=== PATIENT | male | born 1935 | race Caucasian/White ===

== ENCOUNTER 2025-08-12 07:05 | Outpatient (REF) | payer MEDICARE, SELFPAY ==
--- OUTSIDE RECORDS SUMMARY | 2025-08-12 07:09 | XMS_ITS | Encounter Summary ---
Author Organization [facility] Address [address] [place] [address] Phone Care Team Providers Care Switch Foreman Name Role Phone Frederic Mullen MD Unavailable Rosario Rivera MD Primary Care Provider Encounter Details Date Type Department Care Team (Late st Contact Info) Description 05/16/2025 Procedure Pass [place] Admitting Dept - Virtual Department [address] [place] [address] Social History Tobacco Use Types Packs/Day Years Used Date Smoking Tobacco: Unknown Education Answer Date Recorded Are you interested in more education? Not on maki e 07/07/2023 Are you concerned about learning? Not on file 07/07/2023 No 07/07/2023 No 07/07/2023 Food Answer Date Recorded Within the past 6 months we worried whether our food would run out before we got money to buy more. Never True 05/14/2025 Within the past 6 months the food we bought just didn't last and we didn't have enough money to get more. Never True Residential Stability Answer Date Recor ded What is your housing situation today? I have angelicarachel rios 05/14/2025 How many times have you move d in the past 12 months? Zero (I did not move) 05/14/2025 Paying for Meds Answer Date Recorded Do you have trouble paying for medicines? No 05/14/2025 Paying Utility Bills Answer Date Record ed Do you have trouble paying your heating or elect ricity bill? No 05/14/2025 Transportation Answer Date Recorded Has the lack of transportati on kept you from medical appointments or from getting medications? No 05/14/2025 Digital Access Answer Date Recorded No 05/14/2025 Yes 05/14/2025 Do you have reliable internet access at home? Ye s 05/14/2025 Do you have a device (e.g., phone, tablet, computer) with a working camera? Yes 05/14/2025 Intimate Partner Violence Answer Date R ecorded Are you denied basic needs s uch as food, clothing, or medical care? No 05/13/2025 In the past 12 months have y ou been in a relationship with a person who hurts, threatens, or tries to control you? No 05/13/2025 Are you denied basic needs s uch as food, clothing, or medical care? No 05/13/2025 In the past 12 months have y ou been in a relationship with a person who hurts, threatens, or tries to control you? No 05/13/2025 Sex and Gender Information Value Date Recorded Sex Assigned at Male 03/20/2024 12:26 PM EDT Legal Sex Male 5:58 PM EDT Gender Identity Male 03/20/2024 12:26 PM EDT Sexual Orientation Straight 03/20/2024 12 :26 PM EDT documented as of this encounter Plan of Treatment Upcoming Encounters Date Type Department Care Team (Late st Contact Info) Description 08/14/2025 2:15 PM EDT Office Visit [facility] General Surgical Care [address] [place] [address] [place] [address] Josiane Smith MD [address] [facility], 2nd [place] [address] documented as of this encounter Visit Diagnoses Not on filedocumented in this encounter Additional Health Concerns Infection Onset Date Last Indicated Resolved Time CDiff-Risk 05/25/2025 05/25/2025 05/25/2025 10:3 8 AM EDT CDiff-Risk 05/27/2025 05/27/2025 05/27/2025 7:49 PM EDT CoV-Risk Comment:Per note documentation 06/29/2025 06/29/2025 3:35 PM EDT documented as of this encounter Care Teams Switch Foreman Relationship Specialty Start Date End Date Rosario Rivera MD [address] [place] [address] [email or web address] PCP - General Internal Medicine 03/20/24 Frederic Mullen MD [address] [address] [email or web address] Primary Oncologist Hematology and Oncology 08/01/23 documented as of this encounter Additional Source Comments The information contained in this document represents components of the legal health record. It is not the complete legal health record.[facility]
--- OUTSIDE RECORDS SUMMARY | 2025-08-12 07:09 | XMS_ITS | Encounter Summary ---
Author Organization [facility] Address [address] [place] [address] [place] [address] Phone Care Team Providers Care Mail Handler Sorter Name Role Phone Frederic Mullen MD Unavailable Rosario Rivera MD Primary Care Provider Encounter Details Date Type Department Care Team (Late st Contact Info) Description 12/16/2024 Procedure Pass [facility], [facility] Scan - [address] [address] Social History Tobacco Use Types Packs/Day Years Used Date Smoking Tobacco: Never Assessed Education Answer Date Recorded Are you interested in more education? Not on maki e 07/07/2023 Are you concerned about learning? Not on file 07/07/2023 No 07/07/2023 No 07/07/2023 Digital Access Answer Date Recorded No 07/07/2023 No 07/07/2023 Reliable internet access at home? Not on file 07/07/2023 Device with a working camera? Not on file Intimate Partner Violence Answer Date R ecorded Are you denied basic needs s uch as food, clothing, or medical care? No 12/16/2024 In the past 12 months have y ou been in a relationship with a person who hurts, threatens, or tries to control you? No 12/16/2024 Are you denied basic needs s uch as food, clothing, or medical care? No 12/16/2024 In the past 12 months have y ou been in a relationship with a person who hurts, threatens, or tries to control you? No 12/16/2024 Sex and Gender Information Value Date Recorded Sex Assigned at Male 03/20/2024 12:26 PM EDT Legal Sex Male 5:58 PM EDT Gender Identity Male 03/20/2024 12:26 PM EDT Sexual Orientation Straight 03/20/2024 12 :26 PM EDT documented as of this encounter Functional Status * Calculated C-SSRS Risk Score (Lifetime/Recent) Answer Date of Assessment Author No Risk Indicated 12/16/2024 8:08 PM Nayeli Laureano RN * [place] Suicide Severity Rating Scale (Screener/Recent Self-Report) Question Answer Date of Assessment Author 1. Wish to be (Past 1 Month) No 12/16/2024 8:08 PM Nayeli Pierre RN 2. Non-Specific Active Suicidal Thoughts (Past 1 Month) No 12/16/2024 8:08 PM Nayeli Pierre RN 6. Suicidal Behavior (Lifetime) No 12/16/2024 8:08 PM Nayeli Pierre RN documented as of this encounter Plan of Treatment Upcoming Encounters Date Type Department Care Team (Late st Contact Info) Description 08/14/2025 2:15 PM EDT Office Visit [facility] General Surgical Care [address] [place] [phone] Josiane Smith MD [address] [place] [address], 2nd [place] [address] [email or web address] documented as of this encounter Visit Diagnoses Not on filedocumented in this encounter Additional Health Concerns Infection Onset Date Last Indicated Resolved Time CDiff-Risk 05/25/2025 05/25/2025 05/25/2025 10:3 8 AM EDT CDiff-Risk 05/27/2025 05/27/2025 05/27/2025 7:49 PM EDT CoV-Risk Comment:Per note documentation 06/29/2025 06/29/2025 3:35 PM EDT documented as of this encounter Care Teams Mail Handler Sorter Relationship Specialty Start Date End Date Rosario Rivera MD [address] [place] [phone] [email or web address] PCP - General Internal Medicine 03/20/24 Frederic Mullen MD [address] [place] [address] [email or web address] Primary Oncologist Hematology and Oncology 08/01/23 documented as of this encounter Additional Source Comments The information contained in this document represents components of the legal health record. It is not the complete legal health record.[facility]
--- OUTSIDE RECORDS SUMMARY | 2025-08-12 07:09 | XMS_ITS | Encounter Summary ---
Author Organization [facility] Address [address] [place] [address] [place] [phone] Phone Care Team Providers Care Line Supply Name Role Phone Rosario Rivera A Primary Care Provider Frederic Mullen MD Unavailable [phone] Rosario Rivera A Primary Care Provider Encounter Details Date Type Department Care Team (Latest Contact Info) Description 08/11/2023 Transcribe Orders [facility] Specimen Processing [address] [place] [address] Rosario Rivera MD [address] [place] [id number] [email or web address] Dysuria (Primary Dx) Social History Tobacco Use Types Packs/Day Years [...] with a working camera? Not on file Sex and Gender Information Value Date Recorded Sex Assigned at Male 03/20/2024 12:26 PM EDT Legal Sex Male 5:58 PM EDT Gender Identity Male 03/20/2024 12:26 PM EDT Sexual Orientation Straight 03/20/2024 12 :26 PM EDT documented as of this encounter Plan of Treatment Upcoming Encounters Date Type Department Care Team (Late st Contact Info) Description 08/14/2025 2:15 PM EDT Office Visit [facility] General Surgical Care [address] [place] [address] Josiane Smith MD [address] [facility] [place] [address] [email or web address] documented as of this encounter Results * (ABNORMAL) Urinalysis w/reflex Urine Culture (08/10/2023 11:50 AM EDT) COLOR Yellow Yellow [facility] CLARITY TURBID [facility] GLUCOSE 1+(A) Negative [facility] BILI Negative Negative [facility] KETONES Negative Negative [facility] SPECIFIC GRAVITY 1.015 1.005 - 1.030 [facility] BLOOD 1+(A) Negative [facility] PH 5.5 5.0 - 8.0 [facility] Protein-UA 1+(A) Negative [facility] NITRITE Positive(A) Negative [facility] Leukocyte esterase, ur 3+(A) Negative [facility] Urine (Urine) 08/10/2023 11: 50 AM EDT 08/11/2023 11:56 AM EDT us May A Santosh Vaughan MD URINE ORDERABLES Final Result [facility] [address] [place] [address] documented in this encounter Visit Diagnoses Diagnosis Dysuria- Primary documented in this encounter Additional Health Concerns Infection Onset Date Last Indicated Resolved Time CDiff-Risk 05/25/2025 05/25/2025 05/25/2025 10:3 8 AM EDT CDiff-Risk 05/27/2025 05/27/2025 05/27/2025 7:49 PM EDT CoV-Risk Comment:Per note documentation 06/29/2025 06/29/2025 3:35 PM EDT documented as of this encounter Care Teams Line Supply Relationship Specialty Start Date End Date Rosario Rivera MD [address] [place] [phone] [email or web address] PCP - General Internal Medicine 07/07/23 03/19/24 Rosario Rivera MD [address] [place] [address] [email or web address] PCP - General Internal Medicine 03/20/24 Frederic Mullen MD [address] [place] [address] [email or web address] Primary Oncologist Hematology and Oncology 08/01/23 documented as of this encounter Additional Source Comments The information contained in this document represents components of the legal health record. It is not the complete legal health record.[facility]
--- OUTSIDE RECORDS SUMMARY | 2025-08-12 07:09 | XMS_ITS | Encounter Summary ---
Author Organization [facility] Address [address] [place] [address] Phone Care Team Providers Care Earth Science Teacher Name Role Phone Frederic Mullen MD Unavailable Rosario Rivera MD Primary Care Provider Encounter Details Date Type Department Care Team (Late st Contact Info) Description 05/14/2025 Procedure Pass [facility] [address] [place] [address] Social History Tobacco Use Types Packs/Day Years [...] is your housing situation today? I have angelica sing 05/14/2025 How many times have you move [...] Description 08/14/2025 2:15 PM EDT Office Visit [facility] General Surgical Care [address] [place] [address] [place] [address] Josiane Smith MD [address] [facility], 2nd [place] [address] documented as of this encounter Visit Diagnoses Not on filedocumented in this encounter Additional Health Concerns Infection Onset Date Last Indicated Resolved Time CDiff-Risk 05/25/2025 05/25/2025 05/25/2025 10:3 8 AM EDT CDiff-Risk 05/27/2025 05/27/2025 05/27/2025 7:49 PM EDT CoV-Risk Comment:Per note documentation 06/29/2025 06/29/2025 3:35 PM EDT documented as of this encounter Care Teams Earth Science Teacher Relationship Specialty Start Date End Date Rosario Rivera MD [address] [place] [phone] [email or web address] PCP - General Internal Medicine 03/20/24 Frederic Mullen MD [address] [address] [email or web address] Primary Oncologist Hematology and Oncology 08/01/23 documented as of this encounter Additional Source Comments The information contained in this document represents components of the legal health record. It is not the complete legal health record.[facility]
--- OUTSIDE RECORDS SUMMARY | 2025-08-12 07:09 | XMS_ITS | Clinical Summary ---
Author Organization [facility] Address [address] [place] [address] [place] [id number] Phone Care Team Providers Care Audience Coordinator Name Role Phone Frederic Mullen MD Unavailable [phone] Santosh Vaughan May A Primary Care Provider Allergies Active Allergy Reactions Criticality Noted Date Comments Glyburide-Metformin 06/29/2025 Metformin 06/29/2025 Rifampin GI Upset High 06/30/2025 Simvastatin 06/29/2025 Medications aspirin 81 MG EC tablet Take 81 mg by mouth daily. Active pantoprazole (PROTONIX) 40 MG tablet Take 40 mg by mouth daily. Active finasteride (PROSCAR) 5 mg tablet Take 5 mg by mouth daily. Active gabapentin (NEURONTIN) 300 MG capsule Take 300 mg by mouth every morning. Active gabapentin (NEURONTIN) 300 MG capsule Take 900 mg by mouth nightly at bedtime. Active glimepiride (AMARYL) 1 MG tablet Take 0.5 mg by mouth daily before breakfast. If bs greater than 100 Active SITagliptin phosphate (JANUVIA) 100 MG tablet Take 100 mg by mouth daily. Active rosuvastatin (CRESTOR) 20 MG tablet Take 20 mg by mouth daily. Active sucralfate (CARAFATE) 1 gram tablet Take 1 g by mouth as needed. Active silodosin (RAPAFLO) 8 mg Cap Take 8 mg by mouth daily. pm Active traZODone (DESYREL) 50 MG tablet Take 50 mg by mouth nightly at bedtime. Active levothyroxine (SYNTHROID, LEVOTHROID) 50 MCG tablet Take 50 mcg by mouth every morning. 02/21/20 Active ENTRESTO 49-51 mg per tablet Take 0.5 tablets by mouth 2 (two) times a day. 05/22/20 Active Additional Information Patient taking differently:0.5 tablet Oral 2 times daily,24mg-26mg, Reported on 06/19/2025 furosemide (LASIX) 20 MG tablet Take 1 tablet (20 mg total) by mouth daily. 05/22/20 Active spironolactone (ALDACTONE) 25 MG tablet Take 0.5 tablets (12.5 mg total) by mouth daily. 05/22/20 Active psyllium (METAMUCIL) 3.4 gram packet Take 1 packet by mouth 2 (two) times a day. 05/22/20 Active acetaminophen (TYLENOL) 325 mg tablet Take 2 tablets (650 mg total) by mouth every 6 (six) hours as needed for pain (specific location in comments). 05/22/20 Active ondansetron (ZOFRAN-ODT) 4 MG disintegrating tablet Take 1 tablet (4 mg total) by mouth every 8 (eight) hours as needed for nausea. 5 tablet 05/27/20 25 Active phenazopyridine (PYRIDIUM) 100 MG tablet 04/16/20 Active albuterol 2.5 mg /3 mL (0.083 %) nebulizer solution Take 3 mL (2.5 mg total) by nebulization every 4 (four) hours as needed for shortness of breath/dyspnea. 3 mL 07/12/20 25 Active benzocaine (ORAJEL) 10 % mucosal gel Use as directed in the mouth or throat 4 (four) times a day as needed for pain (specific location in comments). 5.3 g 07/12/20 25 Active bisacodyl (DULCOLAX) [address] 1 suppository (10 mg total) rectally daily. 1 suppository 07/12/20 25 Active calcium carbonate 500 mg (200 mg elemental) chewable tabletIndications :dyspepsia,heartb urn Take 1 tablet (500 mg total) by mouth every 6 (six) hours as needed for heartburn. Indications: heartburn, indigestion 90 tablet 07/12/20 25 Active collagenase (SANTYL) ointment Apply topically daily. 30 g 07/12/20 25 Active empagliflozin (JARDIANCE) 10 mg tablet Take 1 tablet (10 mg total) by mouth daily. 30 tablet 07/12/20 25 Active ferrous sulfate 325 mg (65 mg tuscarora iron) tablet Take 1 tablet (325 mg total) by mouth 2 (two) times a day with meals. 60 tablet 07/12/20 25 Active fluticasone propionate (FLONASE) 50 mcg/actuation nasal spray 2 sprays by Nasal route 2 (two) times a day as needed for allergies. 11.1 mL 07/12/20 25 Active guaiFENesin (MUCINEX) 600 mg ER biphasic tablet Take 2 tablets (1,200 mg total) by mouth 2 (two) times a day. 120 tablet 11 07/12/20 25 026 Active insulin lispro (ADMELOG, HUMALOG) 100 unit/mL injection vial Inject 0-6 Units under the skin 4 (four) times a day with meals and nightly. 10 mL 07/12/20 25 Active melatonin 5 mg Tab Take 1 tablet (5 mg total) by mouth nightly at bedtime. 30 tablet 07/12/20 25 Active metoprolol tartrate (LOPRESSOR) 25 MG tablet Take 0.5 tablets (12.5 mg total) by mouth 2 (two) times a day. 30 tablet 07/12/20 25 Active polyethylene glycol (MIRALAX) 17 gram packet Take 17 g by mouth daily. 10 packet 07/12/20 25 Active senna (SENOKOT) 8.6 mg tablet Take 1 tablet by mouth nightly at bedtime. 30 tablet 07/12/20 25 Active gabapentin (NEURONTIN) 100 MG capsule Take 1 capsule (100 mg total) by mouth 3 (three) times a day. 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 Insulin sliding scale, pocc Assessment & Plan (05/20/2025 9:31 AM EDT): Hold oral antihyperglycemic agents. Insulin sliding scale, pocc Assessment & Plan (05/19/2025 9:26 AM EDT): Hold oral antihyperglycemic agents. Insulin sliding scale, pocc Assessment & Plan (05/18/2025 12:31 PM EDT): Hold oral antihyperglycemic agents. Insulin sliding scale, pocc Assessment & Plan (05/17/2025 8:59 AM EDT): Hold oral antihyperglycemic agents. Insulin sliding scale, pocc Assessment & Plan (05/16/2025 10:55 AM EDT): Hold oral antihyperglycemic agents. Insulin sliding scale, pocc Assessment & Plan (05/15/2025 11:16 AM EDT): Hold oral antihyperglycemic agents. Insulin sliding scale, pocc Assessment & Plan (05/14/2025 9:49 AM EDT): Hold oral antihyperglycemic agents. Insulin sliding scale, pocc Assessment & Plan (05/14/2025 12:09 AM EDT): Hold oral antihyperglycemic agents. Insulin sliding scale Coronary artery disease 05/13/2025 Assessment & Plan (05/21/2025 8:58 AM EDT): Continue aspirin 81 mg Assessment & Plan (05/20/2025 9:31 AM EDT): Continue aspirin 81 mg Assessment & Plan (05/19/2025 9:26 AM EDT): Continue aspirin 81 mg Assessment & Plan (05/18/2025 12:31 PM EDT): Continue aspirin 81 mg Assessment & Plan (05/17/2025 8:59 AM EDT): Continue aspirin 81 mg Assessment & Plan (05/16/2025 10:55 AM EDT): Continue aspirin 81 mg Assessment & Plan (05/15/2025 11:16 AM EDT): Continue aspirin 81 mg Assessment & Plan (05/14/2025 9:49 AM EDT): Continue aspirin 81 mg Assessment & Plan (05/14/2025 12:09 AM EDT): Continue aspirin 81 mg Chronic ischemic heart disease, unspecified 06/2025 Pacemaker 05/13/2025 Foot osteomyelitis, left 05/13/2025 Assessment & Plan (05/21/2025 8:58 AM EDT): Secondary to left great toe wound, also with noted tenosynovitis on imaging On admission ESR CRP significantly elevated, MRI evidence of above S/p amputation of left great toe 05/16/2025, mathew pus noted, dr hussein otherwise feels she got clean margins , samples sent to pathology which is pending Continue IV Zosyn with superimposed cellulitis, purulent pockets noted during surgery, did not personally visualize but surgeon reported some residual erythema at base of the toe today 05/18 Wound culture growing Staph aureus Surgery continues to follow, wound VAC applied by wound RN on 05/20, to be changed on 05/22 Infectious disease consulted for antibiotic management, recommending to continue Zosyn with plan to switch to p.o. antibiotic for a 6-week course for Staph aureus osteomyelitis If antibiotics cannot eradicate all residual infection and/or the wound wound does not heal a higher amputation might be necessary Assessment & Plan (05/20/2025 9:31 AM EDT): Secondary to left great toe wound, also with noted tenosynovitis on imaging On admission ESR CRP significantly elevated, MRI evidence of above S/p amputation of left great toe 05/16/2025, mathew pus noted, dr hussein otherwise feels she got clean margins , samples sent to pathology which is pending Continue IV Zosyn with superimposed cellulitis, purulent pockets noted during surgery... did not personally visualize but surgeon reported some residual erythema at base of the toe today 05/18 Wound culture growing MSSA Surgery to reevaluate patient today Wound care consulted He will likely not need prolonged course of antibiotics for osteomyelitis with source control but will need to finish a shorter course of abx for the superimposed cellulitis Assessment & Plan (05/19/2025 9:26 AM EDT): Secondary to left great toe wound, also with noted tenosynovitis on imaging On admission ESR CRP significantly elevated, MRI evidence of above S/p amputation of left great toe 05/16/2025, mathew pus noted, dr hussein otherwise feels she got clean margins , samples sent to path. She will reassess the pt on Monday. Continue IV Zosyn with superimposed cellulitis, purulent pockets noted during surgery... did not personally visualize but surgeon reported some residual erythema at base of the toe today 05/18 wound care, he will likely not need prolonged course of antibiotics for osteomyelitis with source control but will need to finish a shorter course of abx for the superimposed cellulitis as well, for now IV Assessment & Plan (05/18/2025 12:31 PM EDT): - Secondary to left great toe wound, also with noted tenosynovitis on imaging -ESR CRP significantly elevated, MRI evidence of above -s/p amputation of left great toe 05/16/2025, mathew pus noted, dr hussein otherwise feels she got clean margins , samples sent to path. She will reassess the pt on Monday. -Continue IV Zosyn with superimposed cellulitis, purulent pockets noted during surgery... did not personally visualize but surgeon reported some residual erythema at base of the toe today 05/18 -wound care, he will likely not need prolonged course of antibiotics for osteomyelitis with source control but will need to finish a shorter course of abx for the superimposed cellulitis as well, for now IV Assessment & Plan (05/17/2025 8:59 AM EDT): - Secondary to left great toe wound, also with noted tenosynovitis on imaging -ESR CRP significantly elevated, MRI evidence of above -Continue Zosyn with superimposed cellulitis, purulent pockets noted during surgery -s/p amputation of left great toe 05/16/2025, mathew pus noted, dr hussein otherwise feels she got clean margins on bone -wound care, he will likely not need prolonged course of antibiotics for osteomyelitis with source control but will need to finish a shorter course of abx for the superimposed cellulitis as well, for now IV -added another 300 mg afternoon dose of gabapentin Assessment & Plan (05/16/2025 10:55 AM EDT): - Secondary to left great toe wound, also with noted tenosynovitis on imaging -ESR CRP significantly elevated, MRI evidence of above -Continue Zosyn, holding vancomycin with a negative MRSA screen -Wound care -Surgery consulted and planning for amputation today so he will not need prolonged course of antibiotics for osteomyelitis with source control but will need to finish a shorter course of abx for the superimposed cellulitis as well - Chest x-ray and EKG reviewed patient encouraged to use incentive spirometry he is of moderate to high risk for any procedure where he undergoes sedation however plan for local block instead of full anesthesia today Assessment & Plan (05/15/2025 3:05 PM EDT): - Suspected left toe infection, underlying controlled dm2 -ESR CRP significantly elevated, MRI shows concern for early osteomyelitis and tenosynovitis -Continue Zosyn, holding vancomycin with a negative MRSA screen although he is growing Staph aureus -Wound care -Surgery consulted and planning for amputation tomorrow at which point we may be able to discontinue antibiotics if we have good margins however will need to finish a shorter course of abx for the superimposed cellulitis as well -Will check CXR and EKG preop but patient is higher risk for procedure with CAD history, likely will not need full anesthesia Assessment & Plan (05/14/2025 9:49 AM EDT): - Suspected left toe infection, underlying controlled dm2 -ESR CRP significantly elevated, x-ray of the left toe showed no osseous concern, MRI pending -Continue Zosyn and vancomycin at this time, hold vanco if MRSA screen neg -Wound care -surgical consult pending. Assessment & Plan (05/14/2025 12:09 AM EDT): - Suspected left toe infection, has underlying history of type 2 diabetes, well-controlled at this time -Area of surrounding erythema, small lesion over the medial aspect of the left great toe that is draining fluid\. -ESR CRP significantly elevated, x-ray of the left toe was without evidence of acute osteomyelitis Plan: Suspected diabetic toe infection, surgery consulted excruciating Continue Zosyn and vancomycin at this time Check MRSA PCR Wound care consult are speciated. Check MRI of the left toe Surgery consulted recs appreciated. Unspecified atrial fibrillation 03/20/2024 Iron deficiency anemia, unspecified 08/10/2023 Resolved Problems Problem Noted Date Diagnosed Date Resolved Date Hyponatremia 05/17/2025 07/04/2025 Assessment & Plan (05/21/2025 8:58 AM EDT): Mild iso of dehydration, he has soft Bps at baseline, hold parameters for BP meds which he does still tolerate for the most part, got IVF for mild hypoNA that resolved and now is again encouraged to drink fluids. May need to reconsider his cardiac regimen prior to dc, his spironolactone, Lasix and entresto dose was halved during hospitalization Assessment & Plan (05/20/2025 9:31 AM EDT): Mild iso of dehydration, he has soft Bps at baseline, hold parameters for BP meds which he does still tolerate for the most part, got IVF for mild hypoNA that resolved and now is again encouraged to drink fluids. May need to reconsider his cardiac regimen prior to dc, his spironolactone and entresto dose was halved during hospitalization Assessment & Plan (05/19/2025 9:26 AM EDT): Mild iso of dehydration, he has soft Bps at baseline, hold parameters for BP meds which he does still tolerate for the most part, got IVF for mild hypoNA that resolved and now is again encouraged to drink fluids. May need to reconsider his cardiac regimen prior to dc, his spironolactone and entresto dose was halved during hospitalization Assessment & Plan (05/18/2025 12:31 PM EDT): Mild iso of dehydration, he has soft Bps at baseline, hold parameters for BP meds which he does still tolerate for the most part, got IVF for mild hypoNA that resolved and now is again encouraged to drink fluids. May need to reconsider his cardiac regimen prior to dc. I did cut his spironolactone and entresto dosing in half for now. Assessment & Plan (05/17/2025 8:59 AM EDT): Mild iso of dehydration, he has soft Bps at baseline, hold parameters for BP meds which he does still tolerate for the most part, holding lasix today with gentle IVF, encourage oral hydration as well. Hyperkalemia 05/14/2025 05/14/2025 Assessment & Plan (05/14/2025 9:49 AM EDT): Mild hyperkalemia, potassium 5.3, now 4.7, monitor Resolved with fluids, lokelma Assessment & Plan (05/14/2025 12:09 AM EDT): Mild hyperkalemia, potassium 5.3 Unclear etiology at this time, suspect possibility dehydration Plan: Lokelma administered in the ED Recheck BMP in the a.m. Continue IVF hydration. Hyponatremia 05/13/2025 05/15/2025 Assessment & Plan (05/15/2025 11:16 AM EDT): - Mild hyponatremia improved with fluids continue to encourage oral hydration Assessment & Plan (05/14/2025 9:49 AM EDT): - Mild hyponatremia na 125 improved to 130, ct hydration 1 more liter, encourage oral Assessment & Plan (05/14/2025 12:09 AM EDT): - Mild hyponatremia sodium 125, chloride 93 - Appears to be hypovolemic hyponatremia giving urine sodium over 40 mill equivalents -IVF hydration administered in the ED Plan: Recheck BMP in a.m. Close conical monitoring. Can consider nephrology consultation without improvement. Encounters Date Type Department Care Team Description 07/09/2025 11:55 AM EDT Ancillary Procedure [address] [address] Donovan Duncan, STEAM SHOVEL OPERATING ENGINEER 07/07/2025 12:50 PM EDT Ancillary Procedure [address] [address] Gume Anderson MD 06/30/2025 Orders Only [facility] Specimen Processing [address] [place] [address] Rosario Rivera MD 06/30/2025 Procedure Pass [facility] Echo Lab [address] [place] [address] 06/29/2025 2:25 PM EDT Ancillary Procedure [address] [address] Luis Miguel Urias MD 06/29/2025 9:40 AM EDT Ancillary Procedure [address] [address] Abdiel Tucker PA-C 06/29/2025 9:37 AM EDT - 07/12/2025 10:05 AM EDT Hospital Encounter [facility] [address] [place] [id number] Reyes Garcia MD Zaman, Tonbira S, MD Lipkin-Andrea, MD Mustapha Morris, Lukas Langston MD, Gume Ko MD Discharge Disposition: Rehab Facility 06/27/2025 9:04 AM EDT - 06/27/2025 11:59 PM EDT Hospital Encounter [facility] [address] [place] [address] Elizabeth Hines MD Discharge Disposition: Home or Self Care 06/27/2025 Transcribe Orders [facility] Specimen [facility] [address] [place] [address] Elizabeth Hines MD Hypothyroidism, unspecified type (Primary Dx) 06/25/2025 Telephone [facility] Surgical [address] [place] [address] Deedee Willard RN 06/19/2025 1:30 PM EDT Office Visit [address] [place] [address] Josiane Hussein MD Post-operative state (Primary Dx) 06/17/2025 6:14 AM EDT - 06/17/2025 11:59 PM EDT Hospital Encounter [facility] [address] [place] [address] Rosario Rivera MD Discharge Disposition: Home or Self Care 06/17/2025 Transcribe Orders [facility] Specimen Processing [address] [place] [address] Rosario Rivera MD Other specified diabetes mellitus with other specified complication, unspecified whether long lines operator insulin use (Primary Dx) 06/16/2025 Telephone [facility] Surgical [address] [place] [address] Josiane Hussein MD Post-op Problem 06/13/2025 1:00 PM EDT Office Visit [address] [place] [address] Charlie Cantor CNP Post-operative state (Primary Dx); S/P amputation of lesser toe, left; Pressure ulcers of skin of multiple topographic sites 06/13/2025 9:46 AM EDT - 06/13/2025 11:59 PM EDT Hospital Encounter [facility] Laboratory [address] [place] [address] Elizabeth Hines MD Discharge Disposition: Home or Self Care 06/13/2025 Transcribe Orders [facility] Specimen Processing [address] [place] [address] Elizabeth Hines MD Other specified diabetes mellitus with other specified complication, unspecified whether long lines operator insulin use (Primary Dx); Heart failure, unspecified HF chronicity, unspecified heart failure type; Osteomyelitis, unspecified site, unspecified type 06/09/2025 11:36 AM EDT - 06/09/2025 11:59 PM EDT Hospital Encounter [facility] Laboratory [address] [place] [address] Elizabeth Hines MD Discharge Disposition: Home or Self Care 06/04/2025 11:30 AM EDT Office Visit [facility] General Surgical Care [address] [place] [address] Charlie Cantor CNP Post-operative state (Primary Dx); S/P amputation of lesser toe, left 06/03/2025 8:00 AM EDT Telemedicine - audio only [facility] Infectious Diseases [address] [place] [address] Lalit Del Real MD Other osteomyelitis of left foot (Primary Dx) 05/29/2025 11:52 AM EDT - 05/29/2025 11:59 PM EDT Hospital Encounter [facility] Laboratory [address] [place] [address] Deedee Collins NP Discharge Disposition: Home or Self Care 05/29/2025 11:00 AM EDT Telemedicine - audio only [facility] Infectious Diseases [address] [place] [address] Lalit Del Real MD Other osteomyelitis of left foot (Primary Dx); Nausea and vomiting, unspecified vomiting type 05/29/2025 Transcribe Orders [facility] Specimen Processing [address] [place] [address] Deedee Collins NP Leukocytosis, unspecified type (Primary Dx) 05/27/2025 11:48 AM EDT - 05/27/2025 9:58 PM EDT Emergency [facility] Emergency [address] [place] [address] Devon Andersen MD Discharge Disposition: Home or Self Care 05/27/2025 11:30 AM EDT Telemedicine - audio only [facility] Infectious Diseases [address] [place] [address] [place] [address] Lalit Del Real MD Nausea and vomiting, unspecified vomiting type (Primary Dx); Other osteomyelitis of left foot 05/27/2025 10:55 AM EDT - 05/27/2025 11:47 AM EDT Hospital Encounter [facility] Laboratory [address] [place] [address] Deedee Collins NP Discharge Disposition: Home or Self Care 05/27/2025 Procedure Pass [facility], [facility] [address] [place] [address] 05/27/2025 Telephone [facility] Infectious Diseases [address] [place] [address] [place] [address] Lalit Del Real MD Questions 05/27/2025 Transcribe Orders [facility] Specimen Processing [address] [place] [address] Deedee Collins NP Vomiting, unspecified vomiting type, unspecified whether nausea present (Primary Dx) 05/26/2025 11:11 AM EDT - 05/26/2025 11:59 PM EDT Hospital Encounter [facility] Laboratory [address] [place] [address] Elizabeth Hines MD Discharge Disposition: Home or Self Care 05/26/2025 Telephone [facility] Infectious Diseases [address] [place] [address] [place] [address] Lalit Del Real MD Medication Question 05/26/2025 Transcribe Orders [facility] Specimen Processing [address] [place] [address] Elizabeth Hines MD Amputated toe, unspecified laterality (Primary Dx) 05/25/2025 7:22 AM EDT - 05/25/2025 11:59 PM EDT Hospital Encounter [facility] [address] [place] [address] Deedee Collins NP Discharge Disposition: Home or Self Care 05/25/2025 Transcribe Orders [facility] Specimen Processing [address] [place] [address] Deedee Collins NP C. difficile diarrhea (Primary Dx) 05/23/2025 Telephone [facility] General Surgical Care [address] [place] [address] Laura Sands MD Post-op 05/17/2025 Orders Only [facility] [address] [place] [phone] Homehealth, Alaina Tran MD 05/16/2025 12:20 PM EDT Anesthesia Event OR Admitting Dept - Virtual Department [address] [place] [phone] Cristiane Viera MD Johnson, Brian D, MD 05/16/2025 11:37 AM EDT - 05/16/2025 1:04 PM EDT Surgery OR Admitting Dept - Virtual Department [address] [place] [address] Josiane Hussein MD AMPUTATION TOE 05/16/2025 Procedure Pass OR Admitting Dept - Virtual Department [address] [place] [id number] 05/14/2025 Procedure Pass [facility], [facility] - [address] [address] 05/13/2025 5:42 PM EDT - 05/22/2025 3:10 PM EDT Hospital Encounter [facility] [place] [address] [place] [address] Uli Garcia MD Savage, Justin G, DO Grachev, Maksim, DO Altman, Evan K, DO, MPH Neha Madison MD Discharge Disposition: Prison Facility 05/12/2025 8:08 PM EDT - 05/12/2025 11:59 PM EDT Hospital Encounter [facility] Laboratory [address] [place] [address] Rosario Rivera MD Discharge Disposition: Home or Self Care 05/12/2025 Transcribe Orders [facility] Specimen Processing [address] [place] [address] Rosario Rivera MD Diagnosis unknown (Primary Dx) from Last 3 Months Immunizations No known immunizations Social History Tobacco Use Types Packs/Day Years Used Date Smoking Tobacco: Unknown Tobacco Cessation:Counseling Given: Not Answered Alcohol Use Standard Drinks/Week Comments Not Currently 0 (1 standard drink = 0.6 oz pur e alcohol) Education Answer Date Recorded Are you interested in more education? Not on maki e 07/07/2023 Are you concerned about learning? Not on file 07/07/2023 No 07/07/2023 No 07/07/2023 Food Answer Date Recorded Within the past 6 months we worried whether our food would run out before we got money to buy more. Unable to assess 025 Within the past 6 months the food we bought just didn't last and we didn't have enough money to get more. Unable to assess 06/29/2025 Residential Stability Answer Date Recor ded What is your housing situation today? Unable to assess 06/29/2025 How many times have you moved in the past 12 mon ths? Unable to assess 06/29/2025 Paying for Meds Answer Date Recorded Do you have trouble paying for medicines? Unable to assess 06/29/2025 Paying Utility Bills Answer Date Record ed Do you have trouble paying y our heating or electricity bill? Unable to assess 06/29/2025 Transportation Answer Date Recorded Has the lack of transportati on kept you from medical appointments or from getting medications? Unable to assess 06/29/2025 Digital Access Answer Date Recorded No 06/29/2025 No 06/29/2025 Do you have reliable internet access at home? Un able to assess 06/29/2025 Do you have a device (e.g., phone, tablet, computer) with a working camera? Unable to assess 06/29/2025 Intimate Partner Violence Answer Date R ecorded Are you denied basic needs s uch as food, clothing, or medical care? No 06/29/2025 In the past 12 months have y ou been in a relationship with a person who hurts, threatens, or tries to control you? No 06/29/2025 Are you denied basic needs s uch as food, clothing, or medical care? No 06/29/2025 In the past 12 months have y ou been in a relationship with a person who hurts, threatens, or tries to control you? No 06/29/2025 Sex and Gender Information Value Date Recorded Sex Assigned at Male 03/20/2024 12:26 PM EDT Legal Sex Male 5:58 PM EDT Gender Identity Male 03/20/2024 12:26 PM EDT Sexual Orientation Straight 03/20/2024 12 :26 PM EDT Last Filed Vital Signs Vital Sign Reading Time Taken Comments Blood Pressure 117/57 07/12/2025 7:35 AM EDT Pulse 70 07/12/2025 7:35 AM EDT Temperature 35.9 C (96.7 F) 07/12/2025 7:35 AM EDT Respiratory Rate 18 07/12/2025 7:35 AM EDT Oxygen Saturation 97% 07/12/2025 7:35 AM EDT Inhaled Oxygen Concentration 1% 07/04/2025 6 :36 PM EDT Weight 104.1 kg (229 lb 8 oz) 07/12/2025 6:00 AM EDT Height 195.6 cm (6' 5.01 ) 07/11/2025 4:00 AM ED T Body Mass Index 27.21 07/11/2025 4:00 AM EDT Plan of Treatment Upcoming Encounters Date Type Department Care Team (Late st Contact Info) Description 08/14/2025 2:15 PM EDT Office Visit [facility] [address] [place] [address] Josiane Hussein MD [address] [facility], [address]nd [place] [address] [email or web address] Health Maintenance Due Date Last Done Comments Adult Td,Tdap Booster 1936 DEPRESSION SCREENING 1948 HEPATITIS A VACCINES (1 of 2 - Risk 2-dose series) 1955 PNEUMOCOCCAL VACCINES (50+ years) (1 of 2 - PCV) 1955 ZOSTER VACCINES (1 of 2) 1986 RSV VACCINE (1 - 1-dose 75+ series) 2011 DIABETIC EYE EXAM 10/24/2024 INFLUENZA VACCINE (#1) 2025 COVID-19 VACCINE ( - season) 2025 HEMOGLOBIN A1C 10/10/2025 04/10/2025, 10/06, 04/04/2024, Additional history exists TSH LEVEL 07/03/2026 07/03/2025, 05/06, 04/10/2025, Additional history exists POTASSIUM LEVEL 07/11/2026 07/11/2025, 02/2025, 07/08/2025, Additional history exists HIB VACCINES Aged Out No longer eligi ble based on patient's age to complete this topic MENINGOCOCCAL VACCINES (ACWY) Aged Out No longer eligible based on patient's age to complete this topic MENINGOCOCCAL VACCINES (B) Aged Out N o longer eligible based on patient's age to complete this topic Medical Devices Not on file Procedures Procedure Name Priority Date/Time Associated Diagnosis Comments POCT GLUCOSE Routine 07/12/2025 7:40 AM EDT POCT GLUCOSE Routine 07/11/2025 8:17 PM EDT POCT GLUCOSE Routine 07/11/2025 4:56 PM EDT POCT GLUCOSE Routine 07/11/2025 11:46 AM EDT POCT GLUCOSE Routine 07/11/2025 7:53 AM EDT TYPE AND SCREEN (ABO,RH,ANTIBODY SCREEN) Routine 07/11/2025 5:53 AM EDT CBC Routine 07/11/2025 5:41 AM EDT C-REACTIVE PROTEIN Routine 07/11/2025 4: 25 AM EDT NT-PROBNP Routine 07/11/2025 4:25 AM EDT IONIZED CALCIUM Routine 07/11/2025 4:25 AM EDT PHOSPHORUS Routine 07/11/2025 4:25 AM EDT MAGNESIUM Routine 07/11/2025 4:25 AM EDT CBC AND DIFFERENTIAL Routine 07/11/2025 4:25 AM EDT COMPREHENSIVE METABOLIC PANEL Routine 07/11/2025 4:25 AM EDT POCT GLUCOSE Routine 07/10/2025 9:02 PM EDT POCT GLUCOSE Routine 07/10/2025 4:55 PM EDT POCT GLUCOSE Routine 07/10/2025 11:39 AM EDT POCT GLUCOSE Routine 07/10/2025 8:05 AM EDT PHOSPHORUS Routine 07/10/2025 2:50 AM EDT MAGNESIUM Routine 07/10/2025 2:50 AM EDT BASIC METABOLIC PANEL Routine 07/10/2025 2:50 AM EDT POCT GLUCOSE Routine 07/09/2025 8:27 PM EDT POCT GLUCOSE Routine 07/09/2025 4:54 PM EDT THORACENTESIS Routine 07/09/2025 2:02 PM EDT Pleural effusion XR CHEST 1 VIEW STAT 07/09/2025 1:13 PM EDT TOTAL PROTEIN (FLUID--NOT CSF) Routine 07/09/2025 1:01 PM EDT PH, PLEURAL FLUID Routine 07/09/2025 1:0 1 PM EDT LDH (FLUID--NOT CSF) Routine 07/09/2025 1:01 PM EDT GLUCOSE (FLUID--NOT CSF) Routine 07/09/2025 1:01 PM EDT CHOLESTEROL (FLUID--NOT CSF) Routine 07/09/2025 1:01 PM EDT CELL COUNT/DIFFERENTIAL (FLUID--NOT CSF) Routine 07/09/2025 1:01 PM EDT ALBUMIN (FLUID--NOT CSF) Routine 07/09/2025 1:01 PM EDT FLUID CULTURE/SMEAR (NOT CSF) Routine 07/09/2025 1:01 PM EDT HC CUL BACT XCPT URINE BLOOD/STOOL AEROBIC ISOL Routine 07/09/2025 12:38 PM EDT POCT GLUCOSE Routine 07/09/2025 11:52 AM EDT US BEDSIDE Routine 07/09/2025 11:50 AM EDT Pleural effusion POCT GLUCOSE Routine 07/09/2025 7:53 AM EDT POCT GLUCOSE Routine 07/08/2025 8:00 PM EDT POCT GLUCOSE Routine 07/08/2025 5:28 PM EDT FERRITIN STAT 07/08/2025 12:30 PM EDT IRON AND IRON BINDING CAPACITY STAT 07/08/2025 12:30 PM EDT POCT GLUCOSE Routine 07/08/2025 12:06 PM EDT POCT GLUCOSE Routine 07/08/2025 8:08 AM EDT PHOSPHORUS Routine 07/08/2025 5:32 AM EDT MAGNESIUM Routine 07/08/2025 5:32 AM EDT CBC AND DIFFERENTIAL Routine 07/08/2025 5:32 AM EDT BASIC METABOLIC PANEL Routine 07/08/2025 5:32 AM EDT PT-INR Routine 07/08/2025 5:32 AM EDT NT-PROBNP Routine 07/08/2025 5:32 AM EDT PROCALCITONIN Routine 07/08/2025 5:32 AM EDT POCT GLUCOSE Routine 07/07/2025 9:37 PM EDT POCT GLUCOSE Routine 07/07/2025 6:28 PM EDT US BEDSIDE Routine 07/07/2025 12:47 PM EDT Shock Acute hypoxic respiratory failure POCT GLUCOSE Routine 07/07/2025 11:35 AM EDT C-REACTIVE PROTEIN Routine 07/07/2025 4: 34 AM EDT LFTS (HEPATIC PANEL) Routine 07/07/2025 4:34 AM EDT PHOSPHORUS Routine 07/07/2025 4:34 AM EDT MAGNESIUM Routine 07/07/2025 4:34 AM EDT CBC AND DIFFERENTIAL Routine 07/07/2025 4:34 AM EDT BASIC METABOLIC PANEL Routine 07/07/2025 4:34 AM EDT POCT GLUCOSE Routine 07/06/2025 8:20 PM EDT POCT GLUCOSE Routine 07/06/2025 5:04 PM EDT POCT GLUCOSE Routine 07/06/2025 12:19 PM EDT POCT GLUCOSE Routine 07/06/2025 7:19 AM EDT POCT GLUCOSE Routine 07/06/2025 5:50 AM EDT POCT GLUCOSE Routine 07/06/2025 5:16 AM EDT POCT GLUCOSE Routine 07/06/2025 4:44 AM EDT C-REACTIVE PROTEIN Routine 07/06/2025 2: 49 AM EDT LFTS (HEPATIC PANEL) Routine 07/06/2025 2:49 AM EDT PHOSPHORUS Routine 07/06/2025 2:49 AM EDT MAGNESIUM Routine 07/06/2025 2:49 AM EDT CBC AND DIFFERENTIAL Routine 07/06/2025 2:49 AM EDT BASIC METABOLIC PANEL Routine 07/06/2025 2:49 AM EDT TYPE AND SCREEN (ABO,RH,ANTIBODY SCREEN) STAT 07/05/2025 9:34 PM EDT PHOSPHORUS STAT 07/05/2025 9:17 PM EDT MAGNESIUM STAT 07/05/2025 9:17 PM EDT BASIC METABOLIC PANEL STAT 07/05/2025 9:17 PM EDT CBC STAT 07/05/2025 9:17 PM EDT POCT GLUCOSE Routine 07/05/2025 8:45 PM EDT POCT GLUCOSE Routine 07/05/2025 5:12 PM EDT TOXICOLOGY SCREEN, URINE STAT 07/05/2025 2:27 PM EDT POCT GLUCOSE Routine 07/05/2025 12:40 PM EDT POCT GLUCOSE Routine 07/05/2025 8:03 AM EDT XR CHEST 1 VIEW Imaging in AM 07/05/2025 5:20 AM EDT NT-PROBNP Routine 07/05/2025 4:49 AM EDT LFTS (HEPATIC PANEL) Routine 07/05/2025 4:49 AM EDT PROCALCITONIN Routine 07/05/2025 4:49 AM EDT C-REACTIVE PROTEIN Routine 07/05/2025 4: 49 AM EDT PHOSPHORUS Routine 07/05/2025 4:49 AM EDT MAGNESIUM Routine 07/05/2025 4:49 AM EDT CBC AND DIFFERENTIAL Routine 07/05/2025 4:49 AM EDT BASIC METABOLIC PANEL Routine 07/05/2025 4:49 AM EDT POCT GLUCOSE Routine 07/04/2025 7:55 PM EDT POCT GLUCOSE Routine 07/04/2025 4:55 PM EDT PHOSPHORUS STAT 07/04/2025 9:40 AM EDT MAGNESIUM STAT 07/04/2025 9:40 AM EDT COMPREHENSIVE METABOLIC PANEL STAT 07/04/2025 9:40 AM EDT CBC AND DIFFERENTIAL STAT 07/04/2025 9:40 AM EDT POCT GLUCOSE Routine 07/04/2025 8:27 AM EDT POCT GLUCOSE Routine 07/03/2025 8:44 PM EDT POCT GLUCOSE Routine 07/03/2025 4:57 PM EDT POCT GLUCOSE Routine 07/03/2025 11:19 AM EDT POCT GLUCOSE Routine 07/03/2025 7:40 AM EDT TSH Routine 07/03/2025 3:55 AM EDT CORTISOL AM Routine 07/03/2025 3:55 AM EDT PHOSPHORUS Routine 07/03/2025 3:55 AM EDT MAGNESIUM Routine 07/03/2025 3:55 AM EDT IONIZED CALCIUM Routine 07/03/2025 3:55 AM EDT COMPREHENSIVE METABOLIC PANEL Routine 07/03/2025 3:55 AM EDT CBC AND DIFFERENTIAL Routine 07/03/2025 3:55 AM EDT POCT GLUCOSE Routine 07/02/2025 8:41 PM EDT TRANSFUSE RED BLOOD CELLS Routine 07/02/2025 6:30 PM EDT POCT GLUCOSE Routine 07/02/2025 5:54 PM EDT TYPE AND SCREEN (ABO,RH,ANTIBODY SCREEN) Routine 07/02/2025 5:10 PM EDT ABO2F - 2ND TYPE (NEW SAMPLE) Routine 07/02/2025 3:11 PM EDT MAGNESIUM Timed 07/02/2025 3:11 PM EDT BASIC METABOLIC PANEL Timed 07/02/2025 3:11 PM EDT CBC Timed 07/02/2025 3:11 PM EDT POCT GLUCOSE Routine 07/02/2025 11:28 AM EDT XR CHEST PORTABLE Imaging in AM 07/02/2025 6:2 6 AM EDT POCT GLUCOSE Routine 07/02/2025 6:19 AM EDT PT-INR Routine 07/02/2025 6:12 AM EDT PHOSPHORUS Routine 07/02/2025 6:12 AM EDT MAGNESIUM Routine 07/02/2025 6:12 AM EDT IONIZED CALCIUM Routine 07/02/2025 6:12 AM EDT CBC AND DIFFERENTIAL Routine 07/02/2025 6:12 AM EDT COMPREHENSIVE METABOLIC PANEL Routine 07/02/2025 6:12 AM EDT MAGNESIUM Timed 07/02/2025 12:01 AM EDT BASIC METABOLIC PANEL Timed 07/02/2025 12:01 AM EDT POCT GLUCOSE Routine 07/01/2025 11:39 PM EDT POCT GLUCOSE Routine 07/01/2025 5:49 PM EDT PT-INR Timed 07/01/2025 2:24 PM EDT LFTS (HEPATIC PANEL) Timed 07/01/2025 2:24 PM EDT PHOSPHORUS Timed 07/01/2025 2:24 PM EDT MAGNESIUM Timed 07/01/2025 2:24 PM EDT IONIZED CALCIUM Timed 07/01/2025 2:24 PM EDT BASIC METABOLIC PANEL Timed 07/01/2025 2:24 PM EDT POCT GLUCOSE Routine 07/01/2025 11:53 AM EDT XR CHEST PORTABLE Imaging in AM 07/01/2025 6:1 2 AM EDT PHOSPHORUS Timed 07/01/2025 6:06 AM EDT MAGNESIUM Timed 07/01/2025 6:06 AM EDT COMPREHENSIVE METABOLIC PANEL Timed 07/01/2025 6:06 AM EDT CBC AND DIFFERENTIAL Timed 07/01/2025 6:06 AM EDT POCT GLUCOSE Routine 07/01/2025 5:40 AM EDT POCT GLUCOSE Routine 06/30/2025 10:56 PM EDT PT-INR STAT 06/30/2025 9:25 PM EDT COMPREHENSIVE METABOLIC PANEL STAT 06/30/2025 9:25 PM EDT ACETAMINOPHEN LEVEL STAT 06/30/2025 9 :25 PM EDT POCT GLUCOSE Routine 06/30/2025 5:30 PM EDT PHOSPHORUS Timed 06/30/2025 3:05 PM EDT MAGNESIUM Timed 06/30/2025 3:05 PM EDT IONIZED CALCIUM Timed 06/30/2025 3:05 PM EDT BASIC METABOLIC PANEL Timed 06/30/2025 3:05 PM EDT CBC Timed 06/30/2025 3:05 PM EDT ARTERIAL BLOOD GAS Routine 06/30/2025 1: 47 PM EDT IP CONSULT TO WOUND NURSE Routine 06/30/2025 11:49 AM EDT POCT GLUCOSE Routine 06/30/2025 11:19 AM EDT POCT GLUCOSE Routine 06/30/2025 10:19 AM EDT TTE COMPREHENSIVE W/ LVO CONTRAST Routine 06/30/2025 9:35 AM EDT Shock, unspecified MRSA PCR SCREEN Routine 06/30/2025 8:00 AM EDT POCT GLUCOSE Routine 06/30/2025 7:30 AM EDT ARTERIAL BLOOD GAS Routine 06/30/2025 7: 04 AM EDT POCT GLUCOSE Routine 06/30/2025 6:41 AM EDT VANCOMYCIN, PEAK Timed 06/30/2025 5:40 AM EDT XR CHEST 1 VIEW Imaging in AM 06/30/2025 5:02 AM EDT LFTS (HEPATIC PANEL) Routine 06/30/2025 3:15 AM EDT CBC AND DIFFERENTIAL Routine 06/30/2025 3:15 AM EDT PHOSPHORUS Routine 06/30/2025 3:15 AM EDT MAGNESIUM Routine 06/30/2025 3:15 AM EDT BASIC METABOLIC PANEL Routine 06/30/2025 3:15 AM EDT POCT GLUCOSE Routine 06/30/2025 3:09 AM EDT POCT GLUCOSE Routine 06/29/2025 10:50 PM EDT POCT GLUCOSE Routine 06/29/2025 8:37 PM EDT CBC AND DIFFERENTIAL STAT 06/29/2025 8:29 PM EDT PHOSPHORUS STAT 06/29/2025 8:29 PM EDT LACTIC ACID (LACTATE) STAT 06/29/2025 8:29 PM EDT MAGNESIUM STAT 06/29/2025 8:29 PM EDT IONIZED CALCIUM STAT 06/29/2025 8:29 PM EDT BASIC METABOLIC PANEL STAT 06/29/2025 8:29 PM EDT INSERT ARTERIAL LINE Routine 06/29/2025 6:05 PM EDT Pacemaker POCT GLUCOSE Routine 06/29/2025 5:59 PM EDT ARTERIAL BLOOD GAS Routine 06/29/2025 4: 46 PM EDT POCT GLUCOSE Routine 06/29/2025 4:43 PM EDT XR CHEST PORTABLE STAT 06/29/2025 3:2 2 PM EDT CENTRAL LINE Routine 06/29/2025 3:00 PM EDT Shock POCT GLUCOSE Routine 06/29/2025 2:32 PM EDT US BEDSIDE Routine 06/29/2025 2:20 PM EDT Shock POCT GLUCOSE Routine 06/29/2025 1:15 PM EDT POCT GLUCOSE Routine 06/29/2025 12:32 PM EDT PT-INR STAT 06/29/2025 12:27 PM EDT LACTIC ACID (LACTATE) STAT 06/29/2025 12:27 PM EDT TROPONIN STAT 06/29/2025 12:27 PM EDT POCT GLUCOSE Routine 06/29/2025 11:51 AM EDT POCT GLUCOSE Routine 06/29/2025 11:28 AM EDT SALICYLATES STAT 06/29/2025 11:04 AM EDT ACETAMINOPHEN LEVEL STAT 06/29/2025 11:04 AM EDT ETHANOL, BLOOD STAT 06/29/2025 11:04 AM EDT LIPASE STAT 06/29/2025 11:04 AM EDT LFTS (HEPATIC PANEL) STAT 06/29/2025 11:04 AM EDT LACTIC ACID (LACTATE) STAT 06/29/2025 11:04 AM EDT D-DIMER STAT 06/29/2025 11:04 AM EDT NT-PROBNP STAT 06/29/2025 11:04 AM EDT TROPONIN STAT 06/29/2025 11:04 AM EDT BASIC METABOLIC PANEL STAT 06/29/2025 11:04 AM EDT CBC AND DIFFERENTIAL STAT 06/29/2025 11:04 AM EDT POCT GLUCOSE Routine 06/29/2025 10:52 AM EDT BLOOD CULTURE, ROUTINE STAT 06/29/2025 10:52 AM EDT BLOOD CULTURE, ROUTINE STAT 06/29/2025 10:52 AM EDT POCT GLUCOSE Routine 06/29/2025 10:21 AM EDT POCT GLUCOSE Routine 06/29/2025 10:06 AM EDT XR CHEST PORTABLE Routine 06/29/2025 9:5 9 AM EDT ARTERIAL BLOOD GAS STAT 06/29/2025 9: 45 AM EDT COVID PANDEMIC RESPIRATORY VIRAL ORDER (PRO) STAT 06/29/2025 9:38 AM EDT TOXICOLOGY SCREEN, URINE Routine 06/29/2025 9:37 AM EDT URINE SEDIMENT STAT 06/29/2025 9:37 AM EDT URINALYSIS W/REFLEX URINE CULTURE STAT 06/29/2025 9:37 AM EDT URINE CULTURE Routine 06/29/2025 9:37 AM EDT US BEDSIDE Routine 06/29/2025 9:36 AM EDT ECG 12-LEAD STAT 06/29/2025 9:31 AM EDT COMPREHENSIVE METABOLIC PANEL Routine 06/27/2025 6:53 AM EDT Hypothyroidism, unspecified type CBC Routine 06/27/2025 6:53 AM EDT Hypothyroidism, unspecified type CBC Routine 06/17/2025 4:30 AM EDT Other specified diabetes mellitus with other specified complication, unspecified whether long lines operator insulin use C-REACTIVE PROTEIN Routine 06/17/2025 4: 30 AM EDT Other specified diabetes mellitus with other specified complication, unspecified whether mcfp insulin use SEDIMENTATION RATE (ESR) Routine 06/17/2025 4:30 AM EDT Other specified diabetes mellitus with other specified complication, unspecified whether mcfp insulin use BASIC METABOLIC PANEL Routine 06/17/2025 4:30 AM EDT Other specified diabetes mellitus with other specified complication, unspecified whether mcfp insulin use COMPREHENSIVE METABOLIC PANEL Routine 06/13/2025 8:50 AM EDT Other specified diabetes mellitus with other specified complication, unspecified whether mcfp insulin use Heart failure, unspecified HF chronicity, unspecified heart failure type Osteomyelitis, unspecified site, unspecified type CBC Routine 06/13/2025 8:50 AM EDT Other specified diabetes mellitus with other specified complication, unspecified whether long lines operator insulin use Heart failure, unspecified HF chronicity, unspecified heart failure type Osteomyelitis, unspecified site, unspecified type COMPREHENSIVE METABOLIC PANEL Routine 06/09/2025 10:20 AM EDT 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 DIFFICILE PCR STAT 05/27/2025 5:35 PM EDT URINE SEDIMENT STAT 05/27/2025 3:36 PM EDT URINALYSIS W/REFLEX URINE CULTURE STAT 05/27/2025 3:36 PM EDT URINE CULTURE Routine 05/27/2025 3:36 PM EDT PT-INR STAT 05/27/2025 1:33 PM EDT LIPASE STAT 05/27/2025 1:33 PM EDT LFTS (HEPATIC PANEL) STAT 05/27/2025 1:33 PM EDT BASIC METABOLIC PANEL STAT 05/27/2025 1:33 PM EDT CBC AND DIFFERENTIAL STAT 05/27/2025 1:33 PM EDT CBC Routine 05/27/2025 10:40 AM EDT Vomiting, unspecified vomiting type, unspecified whether nausea present COMPREHENSIVE METABOLIC PANEL Routine 05/27/2025 10:40 AM EDT Vomiting, unspecified vomiting type, unspecified whether nausea present BASIC METABOLIC PANEL Routine 05/26/2025 9:43 AM EDT Amputated toe, unspecified laterality CBC Routine 05/26/2025 9:43 AM EDT Amputated toe, unspecified laterality C. DIFFICILE PCR Routine 05/25/2025 6:00 AM EDT C. difficile diarrhea PHOSPHORUS Routine 05/22/2025 5:53 AM EDT MAGNESIUM Routine 05/22/2025 5:53 AM EDT BASIC METABOLIC PANEL Routine 05/22/2025 5:53 AM EDT CBC AND DIFFERENTIAL Routine 05/22/2025 5:53 AM EDT BASIC METABOLIC PANEL Routine 05/21/2025 6:08 AM EDT CBC AND DIFFERENTIAL Routine 05/21/2025 6:08 AM EDT POCT GLUCOSE Routine 05/21/2025 3:17 AM EDT PHOSPHORUS Routine 05/20/2025 5:49 AM EDT MAGNESIUM Routine 05/20/2025 5:49 AM EDT BASIC METABOLIC PANEL Routine 05/20/2025 5:49 AM EDT CBC AND DIFFERENTIAL Routine 05/20/2025 5:49 AM EDT URINALYSIS W/REFLEX URINE CULTURE STAT 05/19/2025 10:01 AM EDT SEDIMENTATION RATE (ESR) Routine 05/19/2025 6:00 AM EDT C-REACTIVE PROTEIN Routine 05/19/2025 6: 00 AM EDT MAGNESIUM Routine 05/19/2025 6:00 AM EDT BASIC METABOLIC PANEL Routine 05/19/2025 6:00 AM EDT CBC Routine 05/19/2025 6:00 AM EDT IP CONSULT TO WOUND NURSE Routine 05/18/2025 12:28 PM EDT BASIC METABOLIC PANEL Routine 05/18/2025 6:29 AM EDT CBC Routine 05/18/2025 6:29 AM EDT CBC Routine 05/17/2025 5:34 AM EDT BASIC METABOLIC PANEL Routine 05/17/2025 5:34 AM EDT POCT GLUCOSE Routine 05/16/2025 2:04 PM EDT TISSUE CULTURE/SMEAR STAT 05/16/2025 1:11 PM EDT ANAEROBIC CULTURE STAT 05/16/2025 12:55 PM EDT WOUND CULTURE/SMEAR STAT 05/16/2025 12:55 PM EDT AIRWAY PLACEMENT Routine 05/16/2025 12:35 PM EDT AMPUTATION TOE 05/16/2025 12:29 PM EDT infected toe BASIC METABOLIC PANEL Routine 05/16/2025 6:35 AM EDT CBC Routine 05/16/2025 6:35 AM EDT TSH WITH REFLEX Routine 05/16/2025 6:35 AM EDT CORTISOL AM Routine 05/16/2025 6:35 AM EDT ANATOMIC PATHOLOGY Routine 05/16/2025 12:00 AM EDT VANCOMYCIN, TROUGH Timed 05/15/2025 6: 56 PM EDT ECG 12-LEAD Routine 05/15/2025 11:36 AM EDT XR CHEST PORTABLE Routine 05/15/2025 11:12 AM EDT CORTISOL AM Routine 05/15/2025 6:06 AM EDT C-REACTIVE PROTEIN Routine 05/15/2025 6: 06 AM EDT SEDIMENTATION RATE (ESR) Routine 05/15/2025 6:06 AM EDT BASIC METABOLIC PANEL Routine 05/15/2025 6:06 AM EDT CBC Routine 05/15/2025 6:06 AM EDT MRI TOE WITH AND WITHOUT CONTRAST (LEFT) Routine 05/14/2025 11:50 PM EDT VANCOMYCIN, PEAK Timed 05/14/2025 9:45 PM EDT MRSA PCR SCREEN Routine 05/14/2025 9:08 AM EDT PT-INR Routine 05/14/2025 7:39 AM EDT COMPREHENSIVE METABOLIC PANEL Routine 05/14/2025 5:34 AM EDT CBC AND DIFFERENTIAL Routine 05/14/2025 5:34 AM EDT PHOSPHORUS Routine 05/14/2025 5:34 AM EDT MAGNESIUM Routine 05/14/2025 5:34 AM EDT IP CONSULT TO WOUND NURSE Routine 05/13/2025 11:57 PM EDT CREATININE (RANDOM URINE) STAT 05/13/2025 10:12 PM EDT URIC ACID, RANDOM URINE STAT 05/13/2025 10:12 PM EDT SODIUM, RANDOM URINE STAT 05/13/2025 10:12 PM EDT OSMOLALITY (URINE, RANDOM) STAT 05/13/2025 10:12 PM EDT OSMOLALITY, SERUM STAT 05/13/2025 7:4 4 PM EDT URIC ACID STAT 05/13/2025 7:44 PM EDT XR TOES 2 OR MORE VIEWS (LEFT) Routine 05/13/2025 7:43 PM EDT WOUND CULTURE/SMEAR STAT 05/13/2025 7 :10 PM EDT ECG 12-LEAD STAT 05/13/2025 1:30 PM EDT SEDIMENTATION RATE (ESR) Routine 05/13/2025 1:19 PM EDT C-REACTIVE PROTEIN Routine 05/13/2025 1: 19 PM EDT LIPASE STAT 05/13/2025 1:19 PM EDT LFTS (HEPATIC PANEL) STAT 05/13/2025 1:19 PM EDT BASIC METABOLIC PANEL STAT 05/13/2025 1:19 PM EDT CBC AND DIFFERENTIAL STAT 05/13/2025 1:19 PM EDT BASIC METABOLIC PANEL Routine 05/12/2025 8:09 PM EDT Diagnosis unknown HEMOGLOBIN A1C Routine 04/10/2025 9:10 AM EDT Subacute delirium Other specified diabetes mellitus with other specified complication, unspecified whether long lines operator insulin use Hyperlipidemia, unspecified hyperlipidemia type Fatigue, unspecified type from Last 3 Months or Most Recently Relevant to Health Maintenance Results * POCT Glucose (07/12/2025 7:40 AM EDT) Only the most recent of67 resultswithin the time period is included. [facility] Signature Glucose, POCT 99 70 - 100 mg/dL [facility] 07/12/2025 7:40 AM EDT 07/12/2025 7:41 AM EDT us Sergey Agustin MD POINT OF CARE TEST ORD ERABLES Final Result Performing Organization Address [facility] Co de Phone Number [address] [phone] * Type and Screen (ABO,Rh,Antibody Screen) (07/11/2025 5:53 AM EDT) Only the most recent of3 resultswithin the time period is included. Pathologist [facility] ABO/Rh A Positive [facility] Antibody Screen Negative [facility] Expiration Date of Sample 07/14/2025,2 359 [facility] Resulting Agency [facility] Blood 07/11/2025 5:53 AM EDT 07/11/2025 6:24 AM EDT us Saravanan Rowe PA-C BLOOD BANK TEST ORDERABLES Final Result Performing Organization Address [facility] Co de Phone Number [address] [phone] * (ABNORMAL) CBC (07/11/2025 5:41 AM EDT) Only the most recent of15 resultswithin the time period is included. Pathologist [facility] WBC 3.67(L) 4.00 - 11.00 K/uL [facility] RBC 2.84(L) 4.50 - 5.90 M/uL [facility] HGB 7.1(L) 13.5 - 17.5 g/dL [facility] HCT 24.7(L) 41.0 - 53.0 % [facility] PLT 209 150 - 450 K/uL [facility] MCV 87.0 80.0 - 100.0 fL [facility] MCH 25.0(L) 27.0 - 31.0 pg [facility] MCHC 28.7(L) 32.0 - 36.0 g/dL [facility] RDW 16.5(H) 11.5 - 14.5 % [facility] MPV 10.1 8.4 - 12.0 fL [facility] NRBC 0.00 0.00 /100 WBCs [facility] ABSOLUTE NRBC 0.00 0.00 K/uL [facility] Blood 07/11/2025 5:41 AM EDT 07/11/2025 6:23 AM EDT us Saravanan Rowe PA-C LAB BLOOD ORDERABLES Final Result [address] [id number] * (ABNORMAL) Comprehensive metabolic panel (07/11/2025 4:25 AM EDT) Only the most recent of12 resultswithin the time period is included. SODIUM 139 133 - 146 mmol/L [facility] POTASSIUM 4.0 3.3 - 5.1 mmol/L [facility] CHLORIDE 107 96 - 108 mmol/L [facility] CO2 24 21 - 35 mmol/L [facility] BUN 16 6 - 19 mg/dL [facility] CREATININE 1.20 0.5 - 1.5 mg/dL [facility] GLUCOSE 85 70 - 99 mg/dL [facility] ALBUMIN 3.2(L) 3.9 - 4.8 g/dL [facility] TOTAL PROTEIN 5.1(L) 6.5 - 8.0 g/dL [facility] CALCIUM 8.6 8.4 - 10.3 mg/dL [facility] ALKALINE PHOSPHATASE 70 39 - 117 U/L [facility] TOTAL BILIRUBIN 0.4 0.0 - 1.2 mg/dL [facility] AST 15 0 - 37 U/L [facility] ALT 28 0 - 40 U/L [facility] GLOBULIN 1.9 1 - 4.8 g/dL [facility] EGFR 58(L) >59 mL/min/1.7 3m2 [facility] Comment:Estimated glomerular filtration rate calculated using the CKD-EPI refit equation. ANION GAP 12 10 - 20 mmol/L [facility] Blood 07/11/2025 4:25 AM EDT 07/11/2025 4:43 AM EDT us Donovan Duncan CNP LAB BLOOD ORDERABLES Nancy casanova Result [facility] [address] [place] [address] * (ABNORMAL) CBC and differential (07/11/2025 4:25 AM EDT) Only the most recent of19 resultswithin the time period is included. WBC 3.70(L) 4.00 - 11.00 K/uL [facility] RBC 2.74(L) 4.50 - 5.90 M/uL [facility] HGB 6.9(LL) 13.5 - 17.5 g/dL [facility] Comment:This result has been called to SANTOSH POLLARD by [id number] on 07/11/2025 05:24:15, and has been read back. HCT 23.6(L) 41.0 - 53.0 % [facility] PLT 216 150 - 450 K/uL [facility] MCV 86.1 80.0 - 100.0 fL [facility] MCH 25.2(L) 27.0 - 31.0 pg [facility] MCHC 29.2(L) 32.0 - 36.0 g/dL [facility] RDW 16.5(H) 11.5 - 14.5 % [facility] MPV 9.9 8.4 - 12.0 fL [facility] NRBC 0.00 0.00 /100 WBCs [facility] ABSOLUTE NRBC 0.00 0.00 K/uL [facility] DIFF METHOD Auto [facility] NEUTS 51.9 48.0 - 76.0 % [facility] LYMPHS 30.3 18.0 - 41.0 % [facility] MONOS 11.9(H) 4.0 - 11.0 % [facility] EOS 4.3 0.0 - 5.0 % [facility] BASOS 0.5 0.0 - 1.5 % [facility] Granulocytes, immature (%) 1.1(H) 0.0 - 0.9 % [facility] ABSOLUTE NEUTS 1.92 1.92 - 7.60 K/uL [facility] ABSOLUTE LYMPHS 1.12 0.72 - 4.10 K/uL [facility] ABSOLUTE MONOS 0.44 0.16 - 1.10 K/uL [facility] ABSOLUTE EOS 0.16 0.00 - 0.50 K/uL [facility] ABSOLUTE BASOS 0.02 0.00 - 0.15 K/uL [facility] Granulocytes, immature 0.04 0.00 - 0.09 K/uL [facility] Blood 07/11/2025 4:25 AM EDT 07/11/2025 4:43 AM EDT Donovan Duncan [facility] LAB BLOOD ORDERABLES Nancy l Result Performing Organization Address City/[facility]/ZIP Co de Phone Number [address] [address] * (ABNORMAL) C-Reactive Protein (07/11/2025 4:25 AM EDT) Only the most recent of8 resultswithin the time period is included. C REACTIVE PROTEIN 9.9(H) 0.0 - 4.0 mg/L [facility] 07/11/2025 4:25 AM EDT 07/11/2025 4:43 AM EDT Donovan Duncan [facility] LAB BLOOD ORDERABLES Nancy l Result Performing Organization Address [facility] Co de Phone Number [address] [address] * Phosphorus (07/11/2025 4:25 AM EDT) Only the most recent of18 resultswithin the time period is included. PHOSPHORUS 3.0 2.7 - 4.5 mg/dL [facility] Blood 07/11/2025 4:25 AM EDT 07/11/2025 4:43 AM EDT us Donovan Duncan [employer] LAB BLOOD ORDERABLES Nancy l Result Performing Organization Address City/[facility]/ZIP Co de Phone Number [address] [address] * (ABNORMAL) NT-proBNP (07/11/2025 4:25 AM EDT) Only the most recent of4 resultswithin the time period is included. NT-PROBNP 10,227(H) 0 - 450 pg/mL [facility] Blood 07/11/2025 4:25 AM EDT 07/11/2025 4:43 AM EDT Donovan Duncan CNP LAB BLOOD ORDERABLES Nancy l Result Performing Organization Address City/[facility] Co de Phone Number [address] [address] * Magnesium (07/11/2025 4:25 AM EDT) Only the most recent of21 resultswithin the time period is included. MAGNESIUM 2.3 1.6 - 2.6 mg/dL [facility] Blood 07/11/2025 4:25 AM EDT 07/11/2025 4:43 AM EDT Donovan Duncan CNP LAB BLOOD ORDERABLES Nancy l Result Performing Organization Address [facility] Co de Phone Number [address] [address] * Ionized calcium (07/11/2025 4:25 AM EDT) Only the most recent of6 resultswithin the time period is included. IONIZED CALCIUM 1.19 1.14 - 1.37 mmol/L [facility] Blood 07/11/2025 4:25 AM EDT 07/11/2025 4:43 AM EDT Donovan Duncan CNP LAB BLOOD ORDERABLES Nancy l Result Performing Organization Address City/[facility] Co de Phone Number [address] [address] * (ABNORMAL) Basic metabolic panel (07/10/2025 2:50 AM EDT) Only the most recent of26 resultswithin the time period is included. SODIUM 137 133 - 146 mmol/L [facility] CHLORIDE 106 96 - 108 mmol/L [facility] POTASSIUM 3.7 3.3 - 5.1 mmol/L [facility] CO2 24 21 - 35 mmol/L [facility] BUN 14 6 - 19 mg/dL [facility] CREATININE 1.10 0.5 - 1.5 mg/dL [facility] GLUCOSE 80 70 - 99 mg/dL [facility] CALCIUM 8.3(L) 8.4 - 10.3 mg/dL [facility] EGFR 65 >59 mL/min/1.7 3m2 [facility] Comment:Estimated glomerular filtration rate calculated using the CKD-EPI refit equation. ANION GAP 11 10 - 20 mmol/L [facility] Blood 07/10/2025 2:50 AM EDT 07/10/2025 3:20 AM EDT us Gume Anderson MD LAB BLOOD ORDERABLES Final R esult Performing Organization Address City/State/[facility] Co de Phone Number [facility] [address] [place], [place] [id number] * THORACENTESIS (07/09/2025 2:02 PM EDT) Anatomical Region Laterality Modality Other Narrative 07/09/2025 2:02 PM EDT Donovan Duncan CNP 07/09/2025 2:03 PM Thoracentesis Date/Time: 07/09/2025 2:02 PM Performed by: Donovan Duncan CNP Authorized by: Donovan Duncan CNP [place] Protocol: Consent obtained: Yes Time out: Immediately prior to the procedure a time-out was called A time out verifies correct patient, procedure, equipment and site/side marked as required: Indications: Procedure purpose: Diagnostic and therapeutic Indications: pleural effusion Preparation: Patient was prepped and draped in usual sterile fashion Local anesthesia used?: Yes Anesthesia: Local infiltration Local anesthetic: Lidocaine 1% without epinephrine Lidocaine without Epinephrine total (ml): 5 Procedure Details: Preparation: Skin prepped with ChloraPrep Patient position: Sitting Ultrasound guidance: static and dynamic Location: Right lateral Intercostal space: 6th Number of attempts: 1 Drainage amount (ml): 1500 Drainage characteristics: Serosanguinous Images: Images saved: Yes us Donovan Alfredito Duncan [employer]PERATING ENGINEER PFT ORDERABLES Final Res ult * XR CHEST 1 VIEW (07/09/2025 1:13 PM EDT) Anatomical Region Laterality Modality Chest Computed Radiogr aphy 07/09/2025 1:17 PM EDT Impressions 07/09/2025 1:21 PM EDT 1. Decreased small right pleural effusion. No pneumothorax. 2. Improved patchy bilateral lower lung opacities, likely atelectasis. Narrative 07/09/2025 1:21 PM EDT XR CHEST 1 VIEW Referring clinician's provided indication for this examination in [facility]: Pneumothorax; s/p therapeutic thora right COMPARISON: XR CHEST 1 VIEW FINDINGS: Devices/Tubes/Lines: Right subclavian central venous catheter tip terminates at the superior cavoatrial junction. Left chest wall cardiac device with similar position of cardiac leads. Lungs: Improved patchy bilateral lower lung opacities. Pleura: Decreased small right pleural effusion. Similar small left pleural effusion. No pneumothorax. Heart/Mediastinum: Unchanged in appearance. Median sternotomy. Mediastinal clips. Bones/Soft Tissues: Osseous degenerative changes. Procedure Note Lefty Peres DO, MPH - 07/09/2025 XR CHEST 1 VIEW Referring clinician's provided indication for this examination in [facility]:Pneumothorax; s/p therapeutic thora right COMPARISON: XR CHEST 1 VIEW FINDINGS: Devices/Tubes/Lines: Right subclavian central venous catheter tipterminates at the superior cavoatrial junction. Left chest wall cardiacdevice with similar position of cardiac leads. Lungs: Improved patchy bilateral lower lung opacities. Pleura: Decreased small right pleural effusion. Similar small left pleuraleffusion. No pneumothorax. Heart/Mediastinum: Unchanged in appearance. Median sternotomy. Mediastinalclips. Bones/Soft Tissues: Osseous degenerative changes. IMPRESSION: 1. Decreased small right pleural effusion. No pneumothorax. 2. Improved patchy bilateral lower lung opacities, likely atelectasis. us Gume Anderson MD IMG XR CHEST Final Result * PH, PLEURAL FLUID (07/09/2025 1:01 PM EDT) FLUID TYPE PLEURAL FLUID [facility] PLEURAL FLUID PH GREATER THAN 7.80 7.35 - 7.50 [facility] Comment: The reference interval(s) and other method performance specifications are unavailable for this body fluid. Comparison of this result with the concentration in the blood, serum, or plasma is recommended. Interpretation: Pleural Fluid pH is useful to evaluate the prognosis of effusions associated with pneumonia. A pleural fluid pH greater than 7.3 suggests that resolution is possible with medical therapy alone. A pH less than 7.2 suggests that a more complicated effusion or empyema requiring surgical drainage has probably formed. This test was developed and its performance characteristics determined by [facility] laboratory. It has not been cleared or approved by the FDA. The laboratory is regulated under CLIA as qualified to perform high-complexity testing and has performed an Internal Validation in accordance with CAP requirements. This test is used for clinical purposes. It should not be regarded as investigational or for research. Other (Pleural fluid) 07/09/2025 1:01 PM EDT 07/09/2025 1:08 PM EDT us Gume Anderson MD BODY FLUIDS AND STOOLS ORDER NACHO Final Result [address] [address] * Cholesterol (fluid--not CSF) (07/09/2025 1:01 PM EDT) FLUID TYPE PLEURAL FLUID [facility] DPT OF LAB MED AND PAT+ Fluid Cholesterol 20 See Comment mg/dL [facility] DPT OF LAB MED AND PAT+ Comment: (NOTE) ADDITIONAL INFORMATION Pleural fluid cholesterol concentrations > 45 to 65 mg/dL are consistent with exudative effusions. Cholesterol concentrations > 200 mg/dL suggest pseudochylous effusions. Peritoneal fluid cholesterol concentrations > 32 to 70 mg/dL suggest a malignant cause of ascites. All other fluids refer to http://www.[facility].com for further interpretive information. This test has been modified from the pediatric acute care unit nurse's instructions. Its performance characteristics were determined by [facility] in a manner consistent with CLIA requirements. This test has not been cleared or approved by the U.S. Food and Drug Administration. Other (Pleural fluid) 07/09/2025 1:01 PM EDT 07/09/2025 1:08 PM EDT us Gume Anderson MD BODY FLUIDS AND STOOLS ORDER NACHO Final Result Performing Organization Address City/[facility]/ZIP Co de Phone Number [facility] DPT OF LAB MED AND PAT+ [address] [place] [address] * (ABNORMAL) Fluid Culture/Gram Stain (Not CSF) (07/09/2025 1:01 PM EDT) Special Requests None 07/09/2025 1:02 PM EDT [facility] GRAM STAIN Many WBC'S , NO ORGANISMS SEEN 07/09/2025 3:35 PM EDT [facility] Fluid Culture/Smear ISOLATED Rare MIXED DOMI (3 OR MORE COLONY TYPES) INCLUDING ONE COLONY OF KOCURIA SPECIES , ONE COLONY OF COAGULASE NEGATIVE STAPHYLOCOCCUS , TWO COLONIES OF: COAGULASE NEGATIVE STAPHYLOCOCCUS of a second type . PROBABLE CONTAMINATION . (A) 07/14/2025 11:48 AM EDT [facility] Fluid Culture/Smear Critical Result. Results called to and read back by: SHAISTA Villalta IN CC(A) 07/14/2025 11:48 AM EDT [facility] Other (Pleural fluid) 07/09/2025 1:01 PM EDT 07/09/2025 1:08 PM EDT Comment:PLEURAL FLUID RIGHT us Gume Anderson MD MICROBIOLOGY - GENERAL ORDER NACHO Final Result Performing Organization Address City/[facility]/ZIP Co de Phone Number [address] [address] * (ABNORMAL) Cell count/differential (fluid--not CSF) (07/09/2025 1:01 PM EDT) FLUID NUCLEATED CELLS 391(H) 0 /uL [facility] FLUID RBC 6,000(H) 0 /uL [facility] Comment: REFERENCE RANGES: Total Red Blood Cells: Synovial - less than [address] Pleural/Peritoneal/Pericardial - less than [address] Specimen Source/Descrip tion FLUID [facility] PATH REVIEW FINAL [facility] Comment: Other cells are pulmonary macrophages. Reviewed by Kranthi Giraldo MD FLUID MONOS 3 % [facility] FLUID LYMPHS 43(H) 0 % [facility] FLUID NEUTS 9 % [facility] FLUID OTHER CELLS 45(H) 0 % [facility] Other (Pleural fluid) 07/09/2025 1:01 PM EDT 07/09/2025 1:08 PM EDT us Gume Anderson MD BODY FLUIDS AND STOOLS ORDER NACHO Final Result [address] [address] * Total protein (fluid--not CSF) (07/09/2025 1:01 PM EDT) FLUID TOTAL PROTEIN 1.6 g/dL [facility] Comment: The reference interval(s) and other method performance specifications are unavailable for this body fluid. Comparison of this result with the concentration in the blood, serum, or plasma is recommended. This test was developed and its performance characteristics determined by [facility] laboratory. It has not been cleared or approved by the FDA. The laboratory is regulated under CLIA as qualified to perform high-complexity testing and has performed an Internal Validation in accordance with CAP requirements. This test is used for clinical purposes. It should not be regarded as investigational or for research. Other (Pleural fluid) 07/09/2025 1:01 PM EDT 07/09/2025 1:08 PM EDT Gume Anderson MD BODY FLUIDS AND STOOLS ORDER NACHO Final Result Performing Organization Address [facility] Co de Phone Number [address] [address] * LDH (fluid--not CSF) (07/09/2025 1:01 PM EDT) FLUID LDH 66 U/L [facility] Comment: The reference interval(s) and other method performance specifications are unavailable for this body fluid. Comparison of this result with the concentration in the blood, serum, or plasma is recommended. This test was developed and its performance characteristics determined by [facility] laboratory. It has not been cleared or approved by the FDA. The laboratory is regulated under CLIA as qualified to perform high-complexity testing and has performed an Internal Validation in accordance with CAP requirements. This test is used for clinical purposes. It should not be regarded as investigational or for research. Other (Pleural fluid) 07/09/2025 1:01 PM EDT 07/09/2025 1:08 PM EDT Gume Anderson MD BODY FLUIDS AND STOOLS ORDER NACHO Final Result Performing Organization Address [facility] de Phone Number [address] [address] * Glucose (fluid--not CSF) (07/09/2025 1:01 PM EDT) FLUID GLUCOSE 113 mg/dL [facility] Comment: The reference interval(s) and other method performance specifications are unavailable for this body fluid. Comparison of this result with the concentration in the blood, serum, or plasma is recommended. This test was developed and its performance characteristics determined by [facility] laboratory. It has not been cleared or approved by the FDA. The laboratory is regulated under CLIA as qualified to perform high-complexity testing and has performed an Internal Validation in accordance with CAP requirements. This test is used for clinical purposes. It should not be regarded as investigational or for research. Other (Pleural fluid) 07/09/2025 1:01 PM EDT 07/09/2025 1:08 PM EDT us Gume Anderson MD BODY FLUIDS AND STOOLS ORDER NACHO Final Result Performing Organization Address [facility] Co de Phone Number [address] [address] * Albumin (fluid--not CSF) (07/09/2025 1:01 PM EDT) FLUID ALBUMIN 1.2 g/dL [facility] Comment: The reference interval(s) and other method performance specifications are unavailable for this body fluid. Comparison of this result with the concentration in the blood, serum, or plasma is recommended. This test was developed and its performance characteristics determined by [facility] laboratory. It has not been cleared or approved by the FDA. The laboratory is regulated under CLIA as qualified to perform high-complexity testing and has performed an Internal Validation in accordance with CAP requirements. This test is used for clinical purposes. It should not be regarded as investigational or for research. Other (Pleural fluid) 07/09/2025 1:01 PM EDT 07/09/2025 1:08 PM EDT us Gume Anderson MD BODY FLUIDS AND STOOLS ORDER NACHO Final Result Performing Organization Address [facility] Co de Phone Number [address] [address] * Fluid culture/BC bottles (07/09/2025 12:38 PM EDT) Special Requests None 07/09/2025 1:22 PM EDT [facility] Fluid Culture/BC Bottles NO GROWTH 5 DAYS 07/14/2025 1:31 PM EDT [facility] Pleural fluid 07/09/2025 12: 38 PM EDT 07/09/2025 1:20 PM EDT us Gume Anderson MD MICROBIOLOGY - GENERAL ORDER NACHO Final Result Performing Organization Address City/[facility]/ZIP Co de Phone Number [address] [address] * US BEDSIDE (07/09/2025 11:50 AM EDT) Anatomical Region Laterality Modality Ultrasound Narrative 07/09/2025 11:50 AM EDT Donovan Duncan CNP 07/09/2025 2:10 PM Bedside Ultrasound Date/Time: 07/09/2025 11:50 AM Performed by: Donovan Duncan CNP Authorized by: Donovan Duncan CNP Exam Type: Thoracic Thoracic Exam Findings & Impression: Indications: patient with shortness of breath Other Indications: Procedural guidence for Right Lung Pleural Effusion: the R chest was visualized and was positive for effusion Left Lung Pleural Effusion: the L chest was visualized and was positive for effusion Overall Impression: positive Images: Images Saved: Yes Accession Number: [id number] Donovan Duncan CNP IMG POINT OF CARE EXAMS F inal Result * (ABNORMAL) Iron and iron binding capacity (07/08/2025 12:30 PM EDT) IRON 14(L) 45 - 160 ug/dL [facility] IRON BINDING CAPACITY 245 228 - 428 ug/dL [facility] TRANSFERRIN SATURAT. 6(L) 20 - 55 % [facility] Blood 07/08/2025 12:3 0 PM EDT 07/08/2025 1:14 PM EDT Gume Anderson MD LAB BLOOD ORDERABLES Final R esult [facility] [address] [place] [address] * Ferritin (07/08/2025 12:30 PM EDT) FERRITIN 71 30 - 400 ug/L [facility] Blood 07/08/2025 12:3 0 PM EDT 07/08/2025 1:14 PM EDT Gume Anderson MD LAB BLOOD ORDERABLES Final R esult [address] [address] * (ABNORMAL) Procalcitonin (07/08/2025 5:32 AM EDT) Only the most recent of2 resultswithin the time period is included. Procalcitonin 0.36(H) 0.00 - 0.25 ng/mL [facility] Comment: <=0.25 ng/mL: Bacterial pneumonia is unlikely. <0.5 ng/mL: Low likelihood of systemic bacterial infection / sepsis. Localized infection is possible. 0.5-2.0 ng/mL: Systemic bacterial infection / sepsis is possible, but other conditions can induce PCT levels in this range as well (e.g., pancreatitis,severe trauma, circulatory shock, surgery, eugene, inhalation injury.) >2.0 ng/mL: Systemic bacterial infection / sepsis is likely. Additional information can be found in the [facility] Procalcitonin Guidelines, available at http://handbook.mgb.org/3817/Content/4-138-251 Blood 07/08/2025 5:32 AM EDT 07/08/2025 5:46 AM EDT us Gume Anderson MD LAB BLOOD ORDERABLES Final R esult Performing Organization Address [facility] Co de Phone Number [address] [address] * (ABNORMAL) PT-INR (07/08/2025 5:32 AM EDT) Only the most recent of7 resultswithin the time period is included. PT 13.6(H) 10.2 - 12.9 sec [facility] INR 1.1 0.9 - 1.1 [facility] Comment:Therapeutic range fo r oral Vitamin K antagonists: 2.0-3.5 Blood 07/08/2025 5:32 AM EDT 07/08/2025 5:46 AM EDT us Gume Anderson MD LAB BLOOD ORDERABLES Final R esult [facility] [address] [place] [address] * US BEDSIDE (07/07/2025 12:47 PM EDT) Anatomical Region Laterality Modality Ultrasound Narrative 07/07/2025 12:47 PM EDT Gume Anderson MD 07/07/2025 1:15 PM Bedside Ultrasound Date/Time: 07/07/2025 12:47 PM Performed by: Gume Anderson MD Authorized by: Gume Anderson MD Exam Type: Cardiac Transthoracic Echocardiogram and Thoracic Cardiac Transthoracic Echocardiogram Exam Findings & Impression: Indications: patient with hypotension and shortness of breath Views: apical four, parasternal long and parasternal short Pericardial Effusion: the pericardial space was visualized and was negative for a pericardial effusion LV Systolic Function: the heart was visualized with normal LV systolic function RV Size: the heart was visualized and there were signs of RV dilatation Other findings: LA enlaregment; images appear c/w and similar to formal echo several days ago Overall Impression: positive Thoracic Exam Findings & Impression: Indications: patient with shortness of breath and hypoxia Right Lung Pleural Effusion: the R chest was visualized and was positive for effusion Left Lung Pleural Effusion: the L chest was visualized and was positive for effusion Other Findings: Bilateral moderate sized pleural effusions- simple, anechoic Overall Impression: positive Images: Images Saved: Yes Accession Number: [id number] Gume Anderson MD IMG POINT OF CARE EXAMS Nancy l Result * (ABNORMAL) LFTs (hepatic panel) (07/07/2025 4:34 AM EDT) Only the most recent of8 resultswithin the time period is included. ALKALINE PHOSPHATASE 80 39 - 117 U/L [facility] TOTAL BILIRUBIN 0.3 0.0 - 1.2 mg/dL [facility] DIRECT BILIRUBIN 0.2 0.0 - 0.2 mg/dL [facility] Bilirubin (Indirect) 0.1 0 - 1.5 mg/dL [facility] AST 25 0 - 37 U/L [facility] ALT 96(H) 0 - 40 U/L [facility] TOTAL PROTEIN 4.6(L) 6.5 - 8.0 g/dL [facility] ALBUMIN 2.5(L) 3.9 - 4.8 g/dL [facility] GLOBULIN 2.1 1 - 4.8 g/dL [facility] A/G Ratio 1.19 1.00 - 4.80 RATIO [facility] Blood 07/07/2025 4:34 AM EDT 07/07/2025 4:55 AM EDT us Lukas Luciano MD, MS LAB BLOOD ORDERABLES Fin al Result [facility] [address] [place] [address] * (ABNORMAL) Toxicology screen, urine (07/05/2025 2:27 PM EDT) Only the most recent of2 resultswithin the time period is included. URINE CANNABINOIDS NONE DETECTED NONE DETECTED [facility] Comment:Cutoff: 50 ng/mL URINE COCAINE METAB NONE DETECTED NONE DETECTED [facility] Comment:Cutoff: 300 ng/mL URINE AMPHETAMINES NONE DETECTED NONE DETECTED [facility] Comment:Cutoff: 1000 ng/mL URINE METHADONE NONE DETECTED NONE DETECTED [facility] Comment:Cutoff: 300 ng/mL URINE OPIATES Positive(A) NONE DETECTED [facility] Comment:Cutoff: 300 ng/mL URINE PHENCYCLIDINE NONE DETECTED NONE DETECTED [facility] Comment:Cutoff: 25 ng/mL URINE OXYCODONE NONE DETECTED NONE DETECTED [facility] Comment:Cutoff: 300 ng/mL URINE BARBITURATES NONE DETECTED NONE DETECTED [facility] Comment:Cutoff: 200 ng/mL URINE BENZODIAZEPINE NONE DETECTED NONE DETECTED [facility] Comment:Cutoff: 200 ng/mL URINE BUPRENORPHINE NONE DETECTED NONE DETECTED [facility] Comment:Cutoff: 5 ng/mL Fentanyl, urine NONE DETECTED NONE DETECTED [facility] Comment: Cutoff: 5 ng/mL INTERPRETATION FOR TOXICOLOGY PANEL: These results are unconfirmed and should be used for Medical Treatment purposes only. Urine (Urine) 07/05/2025 2:2 7 PM EDT 07/05/2025 2:41 PM EDT us Lukas Luciano MD, MS URINE ORDERABLES Final R esult [address] [address] * XR CHEST 1 VIEW (07/05/2025 5:20 AM EDT) Anatomical Region Laterality Modality Chest Computed Radiogr aphy 07/05/2025 10:1 2 AM EDT Impressions 07/05/2025 10:14 AM EDT Similar low lung volumes with bibasilar airspace opacity. Similar small bilateral pleural effusions. Narrative 07/05/2025 10:14 AM EDT XR CHEST 1 VIEW Referring clinician's provided indication for this examination in [facility]: Pleural Effusion COMPARISON: XR CHEST PORTABLE FINDINGS: Devices/Tubes/Lines: Right subclavian approach central venous catheter tip projects over the cavoatrial junction. Left-sided cardiac device with similar lead positioning. Multiple lines overlie the patient obscured the [id number]. Lungs: The lungs are again noted to be low in volume with resultant crowding of the central bronchovascular structures. Patchy bibasilar airspace opacities are unchanged. Pleura: Similar small bilateral pleural effusions. No pneumothorax. Heart/Mediastinum: There is similar radiographic appearance of the cardiomediastinal silhouette. Bones/Soft Tissues: Unchanged Procedure Note Radha Marshall MD - 07/05/2025 XR CHEST 1 VIEW Referring clinician's provided indication for this examination in [facility]:Pleural Effusion COMPARISON: XR CHEST PORTABLE FINDINGS: Devices/Tubes/Lines: Right subclavian approach central venous catheter tipprojects over the cavoatrial junction. Left-sided cardiac device withsimilar lead positioning. Multiple lines overlie the patient obscured [id number]. Lungs: The lungs are again noted to be low in volume with resultantcrowding of the central bronchovascular structures. Patchy bibasilarairspace opacities are unchanged. Pleura: Similar small bilateral pleural effusions. No pneumothorax. Heart/Mediastinum: There is similar radiographic appearance of thecardiomediastinal silhouette. Bones/Soft Tissues: Unchanged IMPRESSION: Similar low lung volumes with bibasilar airspace opacity. Similar smallbilateral pleural effusions. Lukas Luciano MD, MS IMG XR CHEST Final Re sult * Cortisol AM (07/03/2025 3:55 AM EDT) Only the most recent of3 resultswithin the time period is included. CORTISOL AM 17.6 6.02 - 18.4 ug/dL [facility] 07/03/2025 3:55 AM EDT 07/03/2025 4:08 AM EDT Jayden Gibbs PA-C LAB BLOOD ORDERABLES Final Result Performing Organization Address [facility] Co de Phone Number [address] [address] * TSH (07/03/2025 3:55 AM EDT) TSH 1.69 0.27 - 4.20 uIU/mL [facility] 07/03/2025 3:55 AM EDT 07/03/2025 4:08 AM EDT Jayden Gibbs PA-C LAB BLOOD ORDERABLES Final Result Performing Organization Address [facility]/ZIP Co de Phone Number [address] [address] * Transfuse RBC (07/02/2025 8:46 PM EDT) Jayden Gibbs PA-C NURSING TREATMENT ORDERABLE S - BLOOD ADMIN Final Result Performing Organization Address [facility] de Phone Number [id number] * 2nd Type (New Sample) (07/02/2025 3:11 PM EDT) ABO/Rh A Positive [facility] Resulting Agency [facility] 07/02/2025 3:11 PM EDT 07/02/2025 5:37 PM EDT us Jayden Gibbs PA-C BLOOD BANK TEST ORDERABLES Final Result [facility] [address] [place] [address] * XR Chest Portable (07/02/2025 6:26 AM EDT) Anatomical Region Laterality Modality Chest Computed Radiogr aphy 07/02/2025 7:59 AM EDT Impressions 07/02/2025 8:01 AM EDT 1. Lines as described, no pneumothorax. 2. Low lung volumes with stable bilateral patchy opacities. 3. Stable small bilateral pleural effusions. Narrative 07/02/2025 8:01 AM EDT XR CHEST PORTABLE Referring clinician's provided indication for this examination in [facility]: Pleural Effusion COMPARISON: 07/01/2025 FINDINGS: Devices/Tubes/Lines: Left chest wall single lead cardiac device, stable. Right-sided central venous catheter tip at the cavoatrial junction, stable. Lungs: Low lung volumes with bilateral patchy opacities, stable. Pleura: Small bilateral pleural effusions, stable. No pneumothorax. Heart/Mediastinum: Stable heart size. Bones/Soft Tissues: Stable. 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 Procedure Note Ray Sotelo MD - 07/02/2025 XR CHEST PORTABLE Referring clinician's provided indication for this examination in [facility]:Pleural Effusion COMPARISON: 07/01/2025 FINDINGS: Devices/Tubes/Lines: Left chest wall single lead cardiac device, stable. Right-sided central venous catheter tip at the cavoatrial junction,stable. Lungs: Low lung volumes with bilateral patchy opacities, stable. Pleura: Small bilateral pleural effusions, stable. No pneumothorax. Heart/Mediastinum: Stable heart size. Bones/Soft Tissues: Stable. Severe degenerative changes in the leftglenohumeral joint. IMPRESSION: 1. Lines as described, no pneumothorax. 2. Low lung volumes with stable bilateral patchy opacities. 3. Stable small bilateral pleural effusions. us Jayden Gibbs PA-C IMG XR CHEST Final Resul t * XR Chest Portable (07/01/2025 6:12 AM EDT) Anatomical Region Laterality Modality Chest Computed Radiogr aphy 07/01/2025 8:43 AM EDT Impressions 07/01/2025 8:45 AM EDT No significant change from 06/30/2025. Narrative 07/01/2025 8:45 AM EDT XR CHEST PORTABLE Referring clinician's provided indication for this examination in [facility]: Pleural Effusion COMPARISON: Compared with prior chest x-rays for back as 05/15/2025 and as recent as 06/30/2025. FINDINGS: Devices/Tubes/Lines: No significant change in position of right-sided port or left-sided single lead pacemaker. Lungs: Bilateral patchy airspace opacities somewhat sparing the upper lung saenz are similar. Similar prominence and indistinctness of the pulmonary vasculature. Pleura: Similar bilateral pleural effusions. No pneumothorax. Heart/Mediastinum: Stable cardiomediastinal contour. Bones/Soft Tissues: No significant change. Procedure Note Ronald Felton MD - 07/01/2025 XR CHEST PORTABLE Referring clinician's provided indication for this examination in [facility]:Pleural Effusion COMPARISON: Compared with prior chest x-rays for back as 05/15/2025 and asrecent as 06/30/2025. FINDINGS: Devices/Tubes/Lines: No significant change in position of right-sided portor left-sided single lead pacemaker. Lungs: Bilateral patchy airspace opacities somewhat sparing the upper lungfields are similar. Similar prominence and indistinctness of the pulmonaryvasculature. Pleura: Similar bilateral pleural effusions. No pneumothorax. Heart/Mediastinum: Stable cardiomediastinal contour. Bones/Soft Tissues: No significant change. IMPRESSION: No significant change from 06/30/2025. us Jayden Gibbs PA-C IMG XR CHEST Final Resul t * (ABNORMAL) Acetaminophen level (06/30/2025 9:25 PM EDT) Only the most recent of2 resultswithin the time period is included. ACETAMINOPHEN 6.9(L) 15.0 - 30.0 ug/mL [facility] Blood 06/30/2025 9:25 PM EDT 06/30/2025 9:29 PM EDT us Shelia Simmons PA-C LAB BLOOD ORDERABLES Fi nal Result [address] [address] * (ABNORMAL) Arterial blood gas (06/30/2025 1:47 PM EDT) Only the most recent of4 resultswithin the time period is included. pH, Arterial 7.31(L) 7.35 - 7.45 [facility] PCO2, Arterial 31.30(L) 35.00 - 45.00 mmHg [facility] PO2, Arterial 63.60(L) 80.00 - 105.00 mmHg [facility] HCO3, unspecified 15(L) 22 - 26 mmol/L [facility] BASE DEFICIT 9.7(H) 0.0 - 2.0 mmol/L [facility] SO2, unspecified 90.90(L) 95.00 - 98.00 % [facility] FO2HB BLOOD GAS 89.60(L) 94.00 - 100.00 % [facility] Carboxy Hgb 1.10 0 - 1.50 % [facility] MetHgb % 0.30 0 - 1.50 % [facility] Doc's Test Not Applicable CO [facility] ABG site Right Radial [facility] FIO2 Not Applicable FIO2/L min [facility] OXYGEN LITERS/MIN 0 [facility] 06/30/2025 1:47 PM EDT 06/30/2025 2:13 PM EDT us Jayden Gibbs PA-C LAB BLOOD ORDERABLES Final Result [address] [address] * TTE COMPREHENSIVE W/ LVO CONTRAST (06/30/2025 9:35 AM EDT) Body Surface Area 2.34 m2 Height 196 cm Weight 101 kg Systolic BP 109 mmHg Diastolic BP 62 mmHg Interventricular Septum Thickness 11 6 - 11 mm Left Ventricle Internal Diameter End Diastole 47 42 - 58 mm Left Ventricle Internal Diameter End Systole 27 <40 mm Left Ventricular Outflow Tract Diameter 26.0 mm LVOT VTI REST 102.0 mm Left Ventricular Outflow Tract Velocity 0.6 m/s Left Ventricular Outflow Tract Gradient at Rest 2 mmHg Left Ventricular Posterior Wall Thickness 12 6 - 11 mm Ejection Fraction 61 50 - 75 Percent Left Atrium Dimension Anterior-Posterior 53 15 - 40 mm Aortic Valve Time Velocity Integral 644.0 mm Aortic Valve Peak Velocity 3.0 m/s Aortic Valve Peak Gradient 36 mmHg Aortic Arch Diameter 37 mm Aortic Sinus Diameter 40 <40 mm Ascending Aorta Diameter 43 <36 mm Inferior Vena Cava Diameter 27 <21 mm Mitral Valve Mean Gradient 2 mmHg Mitral Valve Peak Gradient 6 mmHg Mitral Valve Area Continuity Equation 1.60 cm2 Pulmonary Valve Peak Velocity 1.2 m/s Pulmonary Valve Peak Gradient 6 mmHg Right Ventricle Basal Diameter 49 25 - 41 mm Raw LV EF% 67 % Relative Wall Thickness 0.51 0.22 - 0.42 Left Ventricle indexed to BSA 85.3 g/m2 Aortic Valve Sinus Index by BSA 17 mm/m2 Aorta Sinus Index by Height 2.04 cm/m Aorta Sinus CSA index by Height 6.41 cm2/m Ascending Aorta Index 18 mm/m2 Asc Aorta CSA Index by Height 7.41 cm2/m Mitral Valve Prosthetic Peak Gradient 6 mmHg Mitral Valve Prosthetic Mean Gradient 2 mmHg Pulmonic Valve Prosthetic Peak Gradient 6 mmHg MGB CV AV DIMENSIONLESS INDEX (PEAK) - STRESS ECHO DOBUT - REST 0.20 Ascending Aorta Index 18 mm Aortic Sinus Index 17 mm Ascending Aorta Diameter 18 mm Aortic Valve Sinus Index 1 17 20 - 32 mm AO ASC DIAM BSA INDEX 18.38 Left Atrial Volume Index 80 16 - 34 mL/m2 Right Ventricle TAPSE 14 >=17 mm Right Ventricle Pulse Doppler S Wave 7.6 >=9.5 cm/s Left Atrial Volume 187 mL Left Atrial Volume Index by Height 95 mL/m Aortic Valve Prosthetic Peak Gradient 36 mmHg Aortic Valve Mean Gradient 18 mmHg Aortic Valve Prosthetic Mean Gradient 18 mmHg Anatomical Region Laterality Modality Heart Ultrasound Narrative 06/30/2025 10:20 AM EDT Images from the original result were not included. Mild LVH with normal LV systolic function EF 55 to 60%. 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 Moderate pulmonary hypertension estimated at 43 mmHg. RV appears moderate to severely dilated and moderately hypokinetic. Severe left atrial enlargement. There is evidence of a mitral valve repair mean gradient 2 mmHg only mild mitral regurgitation. Aortic valve is thickened and somewhat restricted with moderate aortic stenosis. Peak velocity is only 3.0 m/s mean gradient 18 mmHg but valve area calculation based on VTI ratio is around 1 cm . I do not see a prior study for comparison. Left Ventricle The left ventricle is normal in size. There is mild concentric hypertrophy. There is normal left ventricular systolic function. The LV ejection fraction is 61% (calculated via biplane measurement). There are no wall motion abnormalities. LV diastolic function could not be adequately assessed. Right Ventricle The right ventricle is severely dilated. There is reduced right ventricular systolic function. TAPSE is 14 mm. RV S' wave is 7.6 cm/s. Left Atrium The left atrium is severely dilated. The left atrial volume index by BSA is 80 mL/m2. Right Atrium The right atrium is mildly dilated. The IVC is dilated with reduced inspiratory collapse. 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 There is no mitral stenosis. The mitral valve mean gradient is 2 mmHg. There is mild mitral regurgitation. Tricuspid Valve There is poor coaptation of the tricuspid valve leaflets. There is no tricuspid stenosis. There is severe tricuspid regurgitation with a centrally directed jet. There is reversal of systolic flow in the hepatic veins. Aortic Valve The aortic valve is tricuspid. There is calcification of multiple leaflets. There is moderate aortic stenosis. The peak and mean aortic valve gradients are 36 mmHg and 18 mmHg respectively. The maximal transaortic gradients were obtained in the apical 5 view. There is mild aortic regurgitation. The aortic sinuses are mildly dilated. The ascending aorta is mildly dilated. Pulmonic Valve There is no pulmonic stenosis. There is mild pulmonic regurgitation. Pericardium There is no pericardial effusion. There is a pleural effusion. General Findings The study was technically difficult (4). Limited acoustic window, rib artifact. Pt was supine in CCU. Technique(s) used in the evaluation: Color flow Doppler and Spectral Doppler. An ultrasound enhancing agent was administered IV, per ASE guidelines. The predominant rhythm during the study was atrial fibrillation. Comparison Findings There are no prior studies for comparison. IAS/IVS The interatrial septum appears normal. Marilu Power PA-C, MPH CV ECHO ORDERABLES Final Result * MRSA PCR SCREEN (06/30/2025 8:00 AM EDT) Only the most recent of2 resultswithin the time period is included. Pathologist [facility] MRSA PCR SCREEN Negative Negative [facility] Comment:The Xpert MRSA Assay is intended to aid in the prevention and control of MRSA infections in healthcare settings. The assay is not intended to diagnose nor to guide or monitor treatment for MRSA infections. 06/30/2025 8:00 AM EDT 06/30/2025 10:28 AM EDT Luis Miguel Urias MD NON CULTURE MICROBIOLOGY Nancy l Result [address] [address] * (ABNORMAL) Vancomycin, peak (06/30/2025 5:40 AM EDT) Only the most recent of2 resultswithin the time period is included. VANCOMYCIN,PEA K 20.9(L) 30.0 - 40.0 ug/mL [facility] Comment: Interpretation: Therapeutic Range: 30 - 40 ug/ml. Toxic: Greater than or equal to 50 ug/ml. Blood 06/30/2025 5:40 AM EDT 06/30/2025 5:49 AM EDT Luis Miguel Urias MD LAB BLOOD ORDERABLES Final Re sult [facility] [address] [place] [address] * XR CHEST 1 VIEW (06/30/2025 5:02 AM EDT) Anatomical Region Laterality Modality Chest Computed Radiogr aphy 06/30/2025 8:44 AM EDT Impressions 06/30/2025 8:46 AM EDT Worsening pulmonary edema and bilateral pleural effusions when compared to immediate prior study. Narrative 06/30/2025 8:46 AM EDT XR CHEST 1 VIEW Referring clinician's provided indication for this examination in [facility]: Dyspnea (Shortness of Breath); COMPARISON: 06/29/2025, 05/15/2025 FINDINGS: Devices/Tubes/Lines: There is a single lead left-sided cardiac pacemaker in place. Right-sided chest port with the distal tip at the cavoatrial junction. Lungs: Prominent appearance of central pulmonary vasculature with extensive mid and lower lung zone airspace consolidation, increased when compared to prior. Pleura: Moderate left and small right-sided pleural effusions. No pneumothoraces. Heart/Mediastinum: Stable postsurgical changes and stable size and contour of the cardiomediastinal silhouette. Bones/Soft Tissues: Multilevel spondylosis with dextroconvex curvature of the thoracic spine. Median sternotomy wires in place. Bilateral acromioclavicular left greater than right clinic humeral arthropathy. Procedure Note Shreya Lerner MD - 06/30/2025 XR CHEST 1 VIEW Referring clinician's provided indication for this examination in [facility]:Dyspnea (Shortness of Breath); COMPARISON: 06/29/2025, 05/15/2025 FINDINGS: Devices/Tubes/Lines: There is a single lead left-sided cardiac pacemakerin place. Right-sided chest port with the distal tip at the cavoatrialjunction. Lungs: Prominent appearance of central pulmonary vasculature withextensive mid and lower lung zone airspace consolidation, increased whencompared to prior. Pleura: Moderate left and small right-sided pleural effusions. Nopneumothoraces. Heart/Mediastinum: Stable postsurgical changes and stable size and contourof the cardiomediastinal silhouette. Bones/Soft Tissues: Multilevel spondylosis with dextroconvex curvature ofthe thoracic spine. Median sternotomy wires in place. Bilateralacromioclavicular left greater than right clinic humeral arthropathy. IMPRESSION: Worsening pulmonary edema and bilateral pleural effusions when compared toimmediate prior study. Luis Miguel Urias MD IMG XR CHEST Final Result * (ABNORMAL) Lactate (06/29/2025 8:29 PM EDT) Only the most recent of3 resultswithin the time period is included. LACTATE 2.25(H) 0.50 - 2.20 mmol/L [facility] Blood 06/29/2025 8:29 PM EDT 06/29/2025 8:33 PM EDT Luis Miguel Urias MD LAB BLOOD ORDERABLES Final Re sult [address] [address] * INSERT ARTERIAL LINE (06/29/2025 6:05 PM EDT) Narrative Marilu Power PA-C, MPH - 06/29/2025 6:05 PM EDT Marilu Power PA-C, MPH 06/29/2025 6:06 PM Arterial Line Date/Time: 06/29/2025 6:05 PM Performed by: Marilu Power PA-C, MPH Authorized by: Marilu Power PA-C, MPH [place] Protocol: Emergent situation A time out verifies correct patient, procedure, equipment and site/side marked as required: Indications: Indications: multiple ABGs, respiratory failure and hemodynamic monitoring Local anesthesia used?: Yes Anesthesia: Local infiltration Local anesthetic: Lidocaine 1% without epinephrine Lidocaine without Epinephrine total (ml): 3 Procedure Details: Location: Right radial Needle gauge: 20 Seldinger technique: Seldinger technique used Number of attempts: 1 Post-procedure: Post-procedure: Line sutured and dressing applied Post-procedure CMS: Normal Patient tolerance: Patient tolerated the procedure well with no immediate complications Images: Images saved: No Marilu Power PA-C, MPH PROCEDURE/MINOR ANDRY GICAL ORDERABLES Final Result * XR Chest Portable (06/29/2025 3:22 PM EDT) Anatomical Region Laterality Modality Chest Computed Radiogr aphy 06/29/2025 3:35 PM EDT Addenda Addendum by Marissa Carter MBBS on 06/29/2025 4:13 PM EDT ADDENDUM: Addendum: The central venous catheter identified is a subclavian approach catheter and not a PICC. Right subclavian approach central venous catheter with the tip projecting over the right atrium. No pneumothorax. Impressions 06/29/2025 3:38 PM EDT Right PICC with the tip projecting over the superior cavoatrial junction. Similar perihilar and lower lung opacities. Narrative 06/29/2025 3:38 PM EDT XR CHEST PORTABLE Referring clinician's provided indication for this examination in [facility]: Central Line COMPARISON: XR CHEST PORTABLE 09:53:[id number] FINDINGS: Devices/Tubes/Lines: Right PICC with the tip projecting over the right atrium. Left-sided pacemaker leads are unchanged in position. Unchanged median sternotomy wires. Lungs: Similar perihilar and lower lung opacities. No pulmonary edema. Pleura: No large pleural effusions. No pneumothorax. Heart/Mediastinum: Unchanged in appearance. Bones/Soft Tissues: Degenerative changes of the thoracic spine. Procedure Note Marissa Carter MBBS - 06/29/2025 XR CHEST PORTABLE Referring clinician's provided indication for this examination in [facility]:Central Line COMPARISON: XR CHEST PORTABLE 09:53:47.000 FINDINGS: Devices/Tubes/Lines: Right PICC with the tip projecting over the rightatrium. Left-sided pacemaker leads are unchanged in position. Unchangedmedian sternotomy wires. Lungs: Similar perihilar and lower lung opacities. No pulmonary edema. Pleura: No large pleural effusions. No pneumothorax. Heart/Mediastinum: Unchanged in appearance. Bones/Soft Tissues: Degenerative changes of the thoracic spine. IMPRESSION: Right PICC with the tip projecting over the superior cavoatrial junction.Similar perihilar and lower lung opacities. us Luis Miguel Urias MD IMG XR CHEST Edited Result - Final * CENTRAL LINE (06/29/2025 3:00 PM EDT) Narrative Luis Miguel Urias MD - 06/29/2025 3:00 PM EDT Luis Miguel Urias MD 06/29/2025 6:12 PM Central Line Date/Time: 06/29/2025 3:00 PM Performed by: Luis Miguel Urias MD Authorized by: Luis Miguel Urias MD [place] Protocol: Emergent situation Consent obtained: Yes Time out: Immediately prior to the procedure a time-out was called A time out verifies correct patient, procedure, equipment and site/side marked as required: Indications: Indications: Vascular access Local anesthesia used?: Yes Anesthesia: Local infiltration Local anesthetic: Lidocaine 1% without epinephrineProcedure details: Preparation: Skin prepped with 2% chlorhexidine Skin prep agent dried: Skin prep agent completely dried prior to procedure Sterile barriers: All five maximal sterile barriers used - gloves, gown, cap, mask and large sterile sheet Hand hygiene: Hand hygiene performed prior to central venous catheter insertion Location: Right subclavian Patient position: Trendelenburg Catheter type: Triple lumen Pre-procedure: Landmarks identified Other methods: non-pulsatile flow Number of attempts: 1 Successful placement: Yes Post-procedure: Post-procedure: Line sutured, dressing applied and guidewire removed intact Assessment: Blood return through all ports, free fluid flow, placement reviewed on x-ray and no pneumothorax on x-ray Patient tolerance: Patient tolerated the procedure well with no immediate complications Luis Miguel Urias MD PROCEDURE/MINOR SURGICAL ORDE RABLES Final Result * US BEDSIDE (06/29/2025 2:20 PM EDT) Anatomical Region Laterality Modality Ultrasound Narrative 06/29/2025 2:20 PM EDT Luis Miguel Urias MD 06/29/2025 6:11 PM Bedside Ultrasound Date/Time: 06/29/2025 2:20 PM Performed by: Luis Miguel Urias MD Authorized by: Luis Miguel Urias MD Exam Type: Procedural Guidance Accession Number: [id number] Luis Miguel Urias MD IMG POINT OF CARE EXAMS Final Result * (ABNORMAL) Troponin (06/29/2025 12:27 PM EDT) Only the most recent of2 resultswithin the time period is included. Troponin-T, HS Gen5 76(H) 0 - 14 ng/L [facility] Blood 06/29/2025 12:2 7 PM EDT 06/29/2025 1:00 PM EDT Abdiel Tucker PA-C LAB BLOOD ORDERABLES Final Res ult Performing Organization Address [facility] Co de Phone Number [address] [address] * Ethanol, blood (06/29/2025 11:04 AM EDT) ETHANOL <10 <10 mg/dL [facility] Blood 06/29/2025 11:0 4 AM EDT 06/29/2025 11:13 AM EDT Abdiel Tucker PA-C LAB BLOOD ORDERABLES Final Res ult Performing Organization Address [facility] Co de Phone Number [address] [address] * (ABNORMAL) D-dimer (06/29/2025 11:04 AM EDT) D-DIMER 3,349(H) <500 ng/mL FEU [facility] Comment:In patients with low to moderate pre-test probability scores for VTE (PE or DVT), a D-Dimer cut-off less than 500 ng/mL (FEU) has a negative predictive value (NPV) of 97 to 100%. Blood 06/29/2025 11:0 4 AM EDT 06/29/2025 11:13 AM EDT Abdiel Tucker PA-C LAB BLOOD ORDERABLES Final Res ult Performing Organization Address [facility]/ZIP Co de Phone Number [address] [address] * (ABNORMAL) Lipase (06/29/2025 11:04 AM EDT) Only the most recent of3 resultswithin the time period is included. LIPASE 11(L) 16 - 63 U/L [facility] Blood 06/29/2025 11:0 4 AM EDT 06/29/2025 11:13 AM EDT Abdiel Tucker PA-C LAB BLOOD ORDERABLES Final Res ult Performing Organization Address [facility]/ZIP Co de Phone Number [address] [address] * (ABNORMAL) Salicylates (06/29/2025 11:04 AM EDT) SALICYLATES <0.3(L) 2.8 - 19.9 mg/dL [facility] Blood 06/29/2025 11:0 4 AM EDT 06/29/2025 11:13 AM EDT Abdiel Tucker PA-C LAB BLOOD ORDERABLES Final Res ult Performing Organization Address City/[facility]/ZIP Co de Phone Number [address] [address] * Blood Culture, Routine (06/29/2025 10:52 AM EDT) Only the most recent of2 resultswithin the time period is included. Special Requests None 06/29/2025 9:42 AM EDT [facility] BLOOD CULTURE NO GROWTH 5 DAYS 07/04/2025 11:32 AM EDT [facility] Blood (Blood) 06/29/2025 10: 52 AM EDT 06/29/2025 11:27 AM EDT us Abdiel Tucker PA-C MICROBIOLOGY - GENERAL ORDERAB LES Final Result Performing Organization Address City/State/[facility] Co de Phone Number [facility] [address] [place] [address] * XR Chest Portable (06/29/2025 9:59 AM EDT) Anatomical Region Laterality Modality Chest Computed Radiogr aphy 06/29/2025 10:0 0 AM EDT Impressions 06/29/2025 10:14 AM EDT 1. New bilateral ill-defined perihilar and lower lobe predominant airspace opacities. 2. Small bilateral pleural effusions. ATTESTATION: I, Obi Pringle as teaching physician, have reviewed the images for this case and if necessary edited the report originally created by Mike Chavis MD. Narrative 06/29/2025 10:14 AM EDT XR CHEST PORTABLE Referring clinician's provided indication for this examination in [facility]: Dyspnea (Shortness of Breath) COMPARISON: XR CHEST PORTABLE FINDINGS: Devices/Tubes/Lines: Unchanged left-sided chest wall pacemaker. Lungs: New ill-defined bilateral perihilar and lower lobe predominant airspace opacities. Pleura: Small bilateral pleural effusions. No pneumothorax. Heart/Mediastinum: Unchanged cardiomegaly. Bones/Soft Tissues: Median sternotomy. Procedure Note Obi Pringle MD, MPH - 06/29/2025 XR CHEST PORTABLE Referring clinician's provided indication for this examination in [facility]:Dyspnea (Shortness of Breath) COMPARISON: XR CHEST PORTABLE FINDINGS: Devices/Tubes/Lines: Unchanged left-sided chest wall pacemaker. Lungs: New ill-defined bilateral perihilar and lower lobe predominantairspace opacities. Pleura: Small bilateral pleural effusions. No pneumothorax. Heart/Mediastinum: Unchanged cardiomegaly. Bones/Soft Tissues: Median sternotomy. IMPRESSION: 1. New bilateral ill-defined perihilar and lower lobe predominantairspace opacities. 2. Small bilateral pleural effusions. ATTESTATION: I, Obi Pringle as teaching physician, have reviewed theimages for this case and if necessary edited the report originally createdby Mike Chavis MD. us Abdiel Tucker PA-C IMG XR CHEST Final Result * COVID Pandemic Respiratory Viral Order (PRO) (06/29/2025 9:38 AM EDT) Test Ordered Rapid COVID has been ordered [facility] Specimen Source/Description FLUID, NASAL [facility] SARS-CoV 2 (COVID-19) PCR Not Detected Not Detected [facility] Comment: SARS-CoV-2 not detected Negative results do not preclude SARS-CoV-2 infection and should not be used as the sole basis for patient management decisions. Negative results must be combined with clinical observations, patient history, and epidemiological information. Other (Nasopharyngeal swab) 06/29/2025 9:38 AM EDT 06/29/2025 9:45 AM EDT us Abdiel Tucker PA-C BODY FLUIDS AND STOOLS ORDERAB LES Final Result [address] [address] * (ABNORMAL) Urinalysis w/reflex Urine Culture (06/29/2025 9:37 AM EDT) Only the most recent of3 resultswithin the time period is included. COLOR Yellow Yellow [facility] CLARITY HAZY [facility] GLUCOSE Negative Negative [facility] BILI Negative Negative [facility] KETONES Negative Negative [facility] SPECIFIC GRAVITY 1.015 1.005 - 1.030 [facility] BLOOD Trace(A) Negative [facility] PH 6.0 5.0 - 8.0 [facility] Protein-UA Trace(A) Negative [facility] NITRITE Negative Negative [facility] Leukocyte esterase, ur 3+(A) Negative [facility] Urine (Urine) 06/29/2025 9:3 7 AM EDT 06/29/2025 9:46 AM EDT Abdiel Tucker PA-C URINE ORDERABLES Final Result [address] [address] * (ABNORMAL) Urine Culture (06/29/2025 9:37 AM EDT) Only the most recent of2 resultswithin the time period is included. 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 Ampicillin + Sulbactam CARLOS METHOD >=32: Resistant Hafnia alvei Ceftazidime CARLOS METHOD 2: Susceptible Hafnia alvei Ceftriaxone CARLOS METHOD 1: Susceptible Hafnia alvei Ciprofloxacin CARLOS METHOD <=0.06: Susceptible Hafnia alvei Gentamicin CARLOS METHOD <=1: Susceptible Hafnia alvei Levofloxacin CARLOS METHOD <=0.12: Susceptible Hafnia alvei Nitrofurantoin CARLOS METHOD 64: Intermediate Hafnia alvei Piperacillin-tazobactam CARLOS METHOD 64: Resistant Hafnia alvei Trimethoprim/sulfamethoxazole CARLOS METHOD <=20: Susceptible Hafnia alvei Meropenem CARLOS METHOD 0.5: Susceptible Comment: Abdiel Tucker PA-C MICROBIOLOGY - GENERAL ORDERAB LES Final Result Performing Organization Address [facility] Co de Phone Number [address] [address] * (ABNORMAL) Urine sediment (06/29/2025 9:37 AM EDT) Only the most recent of2 resultswithin the time period is included. WBC TOO NUMEROUS TO COUNT(A) NONE SEEN /hpf [facility] RBC 6-10(A) NONE SEEN /hpf [facility] URINE EPITHELIAL 5-10(A) NONE SEEN [facility] MUCUS NONE SEEN NONE SEEN /hpf [facility] BACTERIA 3+(A) NONE SEEN /hpf [facility] 06/29/2025 9:37 AM EDT 06/29/2025 9:46 AM EDT Abdiel Tucker PA-C URINE ORDERABLES Final Result Performing Organization Address City/[facility] Co de Phone Number [address] [address] * US BEDSIDE (06/29/2025 9:36 AM EDT) Anatomical Region Laterality Modality Ultrasound Narrative 06/29/2025 9:36 AM EDT Reyes Garcia MD 06/30/2025 9:39 AM Bedside Ultrasound Date/Time: 06/29/2025 9:36 AM Performed by: Abdiel Tucker PA-C Authorized by: Abdiel Tucker PA-C Exam Type: Cardiac Transthoracic Echocardiogram and Thoracic Cardiac Transthoracic Echocardiogram Exam Findings & Impression: Indications: patient with hypotension and shortness of breath Views: apical four, parasternal long, parasternal short and subxiphoid Pericardial Effusion: the pericardial space was visualized and was negative for a pericardial effusion LV Function: the heart was visualized with depressed LV function RV Size: the RV was not well visualized IVC: the IVC was visualized and appeared normal Overall Impression: negative Thoracic Exam Findings & Impression: Indications: patient with shortness of breath and hypotension Right Lung Pleural Effusion: the R chest was visualized and was negative for effusion Left Lung Pleural Effusion: the L chest was visualized and was negative for effusion Right Lung B-Lines: the R chest was visualized and multiple B lines were seen Left Lung B-Lines: the L chest was visualized and multiple B lines were seen Right Lung Consolidation: the R lung was visualized and there was no consolidation Left Lung Consolidation: the L lung was visualized and there was no consolidation Right Lung Sliding: the R chest was evaluated and lung sliding was visualized Left Lung Sliding: the L chest was visualized and lung sliding was visualized Overall Impression: positive Images: Images Saved: Yes Accession Number: [id number] Abdiel Tucker PA-C IMG POINT OF CARE EXAMS Final Result * ECG 12-LEAD (06/29/2025 9:31 AM EDT) Only the most recent of3 resultswithin the time period is included. Ventricular Rate EKG/MIN 82 BPM [facility] Atrial Rate 60 BPM [facility] QRS Duration 80 ms [facility] QT Interval 334 ms [facility] QTC Interval 390 ms [facility] R Wave [place] -4 degrees [facility] T Wave [place] 205 degrees [facility] 06/29/2025 9:31 AM EDT 06/30/2025 10:11 AM EDT Narrative [facility] - 06/30/2025 10:11 AM EDT Ventricular-paced rhythm Abnormal ECG When compared with ECG of 15-May-2025 11:36, Vent. rate has increased by 12 bpm Confirmed by Cristian Weiner ([id number]) on 06/30/2025 10:11:44 AM Abdiel Tucker PA-C ECG ORDERABLES Final Result [facility] * Sedimentation rate (ESR) (06/17/2025 4:30 AM EDT) Only the most recent of4 resultswithin the time period is included. ESR 18 0 - 20 mm/h [facility] 06/17/2025 4:30 AM EDT 06/17/2025 6:36 AM EDT us Rosario Langston Santosh Vaughan MD LAB BLOOD ORDERABLES F inal Result [address] [address] * CT ABDOMEN/PELVIS WITH CONTRAST (05/27/2025 5:59 PM EDT) Anatomical Region Laterality Modality Abdomen, Pelvis Computed Tomogra phy 05/27/2025 7:45 PM EDT Impressions 05/27/2025 8:05 PM EDT 1. Proximal duodenal thickening may relate to duodenitis or peptic ulcer disease. Diverticulitis involving periampullary duodenal diverticula is another differential consideration. Underlying lesion/neoplasm not excluded. Consider follow-up endoscopy if not recently performed. 2. Small hiatal hernia with thickened distal esophagus may relate to reflux/esophagitis. 3. Diarrheal illness with mild rectosigmoid wall thickening/mucosal enhancement, reactive changes versus mild proctocolitis. 4. Small right pleural effusion. Narrative 05/27/2025 8:[address] ABDOMEN/PELVIS WITH CONTRAST Referring clinician's provided indication for this examination in Epic: * Abdominal pain, acute, nonlocalized TECHNIQUE: Multidetector-row CT of the abdomen and pelvis was performed after administration of intravenous contrast using tailored dose modulation techniques. Images were reconstructed in the axial, coronal, and sagittal planes. COMPARISON: CT ABDOMEN/PELVIS WITHOUT CONTRAST FINDINGS: Lower Chest: Small right pleural effusion with adjacent lower lobe relaxation atelectasis. Additional milder bibasilar subsegmental atelectasis. Partially imaged pacemaker lead. Severe coronary artery disease and sequela of CABG, partially imaged. Mitral and aortic annular and aortic valve leaflet calcifications. Partially imaged sternotomy. Bilateral gynecomastia. Liver: No suspicious lesions. Biliary: Cholecystectomy with mild reservoir effect. No acute biliary ductal dilatation. Pancreas: No ductal dilatation or asymmetric peripancreatic inflammation. Fatty atrophy. Spleen: Similar small hypoattenuating lesion off the superolateral border, likely benign. Bowel: Appendix not definitively identified. Small hiatal hernia. Thickened distal esophagus. Thickened proximal duodenum, most conspicuous to the level of the ampulla. Periampullary duodenal diverticulum, overall similar in size, measuring up to 2.5 cm in depth. Periduodenal fat stranding/edema, appears worse around the duodenal bulb/first segment than the. Basilar diverticulum. Normal caliber small bowel. Colonic diverticulosis, without gross diverticulitis. Mild scattered liquid stool throughout the colon, to the level of the sigmoid. Mild rectosigmoid wall thickening and mucosal hyperenhancement. Adrenal Glands: No suspicious nodules. Kidneys/Ureters: Atrophic bilaterally. Similar multifocal bilateral cysts. No obstructing stones or hydronephrosis. No suspicious mass. Symmetric perinephric edema. Pelvic Organs/Bladder: Limited visualization due to streak artifact from hip prostheses. Partially visualized prostatomegaly. Bladder wall trabeculations may relate to chronic outlet obstruction. Peritoneum/Retroperitoneum: No free air or significant free fluid. Lymph Nodes: No suspicious lymphadenopathy by CT size criteria. Vessels: Aortic atherosclerosis. No aortic aneurysm. Bones/Soft Tissues: Moderate to severe multilevel degenerative changes of the spine. Mild lumbar levocurvature. Bilateral total hip arthroplasties. Chronic right inferior pubic ramus fracture deformity. Procedure Note Hiram Bashir MD - 05/27/2025 CT ABDOMEN/PELVIS WITH CONTRAST Referring clinician's provided indication for this examination in Epic: *Abdominal pain, acute, nonlocalized TECHNIQUE: Multidetector-row CT of the abdomen and pelvis was performedafter administration of intravenous contrast using tailored dosemodulation techniques. Images were reconstructed in the axial, coronal,and sagittal planes. COMPARISON: CT ABDOMEN/PELVIS WITHOUT CONTRAST FINDINGS: Lower Chest: Small right pleural effusion with adjacent lower loberelaxation atelectasis. Additional milder bibasilar subsegmentalatelectasis. Partially imaged pacemaker lead. Severe coronary arterydisease and sequela of CABG, partially imaged. Mitral and aortic annularand aortic valve leaflet calcifications. Partially imaged sternotomy.Bilateral gynecomastia. Liver: No suspicious lesions. Biliary: Cholecystectomy with mild reservoir effect. No acute biliaryductal dilatation. Pancreas: No ductal dilatation or asymmetric peripancreatic inflammation.Fatty atrophy. Spleen: Similar small hypoattenuating lesion off the superolateral border,likely benign. Bowel: Appendix not definitively identified. Small hiatal hernia.Thickened distal esophagus. Thickened proximal duodenum, most conspicuousto the level of the ampulla. Periampullary duodenal diverticulum, overallsimilar in size, measuring up to 2.5 cm in depth. Periduodenal fatstranding/edema, appears worse around the duodenal bulb/first segment thanthe. Basilar diverticulum. Normal caliber small bowel. Colonicdiverticulosis, without gross diverticulitis. Mild scattered liquid stoolthroughout the colon, to the level of the sigmoid. Mild rectosigmoid wallthickening and mucosal hyperenhancement. Adrenal Glands: No suspicious nodules. Kidneys/Ureters: Atrophic bilaterally. Similar multifocal bilateral cysts.No obstructing stones or hydronephrosis. No suspicious mass. Symmetricperinephric edema. Pelvic Organs/Bladder: Limited visualization due to streak artifact fromhip prostheses. Partially visualized prostatomegaly. Bladder walltrabeculations may relate to chronic outlet obstruction. Peritoneum/Retroperitoneum: No free air or significant free fluid. Lymph Nodes: No suspicious lymphadenopathy by CT size criteria. Vessels: Aortic atherosclerosis. No aortic aneurysm. Bones/Soft Tissues: Moderate to severe multilevel degenerative changes ofthe spine. Mild lumbar levocurvature. Bilateral total hip arthroplasties.Chronic right inferior pubic ramus fracture deformity. IMPRESSION: 1. Proximal duodenal thickening may relate to duodenitis or peptic ulcerdisease. Diverticulitis involving periampullary duodenal diverticula isanother differential consideration. Underlying lesion/neoplasm notexcluded. Consider follow-up endoscopy if not recently performed. 2. Small hiatal hernia with thickened distal esophagus may relate toreflux/esophagitis. 3. Diarrheal illness with mild rectosigmoid wall thickening/mucosalenhancement, reactive changes versus mild proctocolitis. 4. Small right pleural effusion. Devon Andersen MD IM CT ABD/PELVIS Final Result * C. DIFFICILE PCR (05/27/2025 5:35 PM EDT) Only the most recent of2 resultswithin the time period is included. C.DIFFICILE PCR Negative Negative [facility] C.DIFFICILE STRAIN PRESUMPTIVE NEGATIVE PRESUMPTIVE NEGATIVE [facility] Comment:Detection of 027/NAP 1/BI strains of C.difficile is presumptive and is solely for epidemiological purposes and is not intended to guide or monitor treatment of infections. Stool (Stool) 05/27/2025 5:3 5 PM EDT 05/27/2025 6:42 PM EDT Devon Andersen MD MICROBIOLOGY - GE NERAL ORDERABLES Final Result [facility] [address] [place] [address] * Ova and parasites, stool (05/27/2025 5:35 PM EDT) Parasitic exam FINAL [address] [facility] DPT OF LAB MED AND PAT+ Comment: (NOTE) SOURCE: STOOL, STLP OVA AND PARASITE, MICROSCOPY, F FINAL No parasites seen. Cryptosporidium, Cyclospora, and microsporidia are not readily detected by this method. Single negative specimen does not rule out parasitic infection. Stool (Stool) 05/27/2025 5:3 5 PM EDT 05/27/2025 6:42 PM EDT Devon Andersen MD MICROBIOLOGY - BULX NERAL ORDERABLES Final Result Performing Organization Address City/[facility]/ZIP Co de Phone Number [facility] DPT OF LAB MED AND PAT+ [address] [place] [address] * Stool culture (05/27/2025 5:35 PM EDT) Special Requests None 05/27/2025 5:36 PM EDT [facility] Stool Culture NO SALMONELLA, SHIGELLA OR CAMPYLOBACTER ISOLATED 05/29/2025 8:37 AM EDT [facility] Stool (Stool) 05/27/2025 5:3 5 PM EDT 05/27/2025 8:41 PM EDT Devon Andersen MD MICROBIOLOGY - GE NERAL ORDERABLES Final Result [address] [address] * (ABNORMAL) TISSUE CULTURE/SMEAR (05/16/2025 1:11 PM EDT) Special Requests None 05/16/2025 1:11 PM EDT [facility] GRAM STAIN NO CELLS OR ORGANISMS 05/17/2025 9:47 AM EDT [facility] Tissue Culture/Smear Rare STAPHYLOCOCCUS AUREUS(A) 05/18/2025 10:55 AM EDT [facility] Other (Bone) 05/16/2025 1:11 PM EDT 05/16/2025 2:00 PM EDT Comment:LEFT GREAT TOE PROXI MAL BONE MARGIN, METATARSAL HEAD Narrative Organism Antibiotic Method Susceptibility Staphylococcus aureus Penicillin G CARLOS METHOD >=0.5: Resistant Staphylococcus aureus Clindamycin CARLOS METHOD <=0.25: Susceptible Staphylococcus aureus Erythromycin CARLOS METHOD <=0.25: Susceptible Staphylococcus aureus Gentamicin CARLOS METHOD <=0.5: Susceptible Staphylococcus aureus inducible clindamycin CARLOS METHOD Negative Staphylococcus aureus Levofloxacin CARLOS METHOD 0.25: Susceptible Staphylococcus aureus Oxacillin(methicillin) CARLOS METHO D 0.5: Susceptible Staphylococcus aureus Rifampin CARLOS METHOD <=0.5: Susceptible Staphylococcus aureus Tetracycline CARLOS METHOD <=1: Susceptible Staphylococcus aureus Trimethoprim/sulfamethoxazole [place] C METHOD <=10: Susceptible Staphylococcus aureus Vancomycin CARLOS METHOD <=0.5: Susceptible Staphylococcus aureus Cefoxitin CARLOS METHOD Negative Comment: Josiane Hussein MD MICROBIOLOGY - GENERAL ORDER NACHO Final Result [address] [address] * (ABNORMAL) Wound culture/smear (05/16/2025 12:55 PM EDT) Only the most recent of2 resultswithin the time period is included. Special Requests None 05/16/2025 12:55 PM EDT [facility] GRAM STAIN Moderate WBC'S , Rare GRAM POSITIVE COCCI 05/17/2025 9:17 AM EDT [facility] Wound Culture/Smear Many STAPHYLOCOCCUS AUREUS(A) 05/18/2025 10:56 AM EDT [facility] Other (Wound) 05/16/2025 12: 55 PM EDT 05/16/2025 1:59 PM EDT Comment:LEFT GREAT TOE WOUND Narrative Organism Antibiotic Method Susceptibility Staphylococcus aureus Penicillin G CARLOS METHOD >=0.5: Resistant Staphylococcus aureus Clindamycin CARLOS METHOD <=0.25: Susceptible Staphylococcus aureus Erythromycin CARLOS METHOD <=0.25: Susceptible Staphylococcus aureus Gentamicin CARLOS METHOD <=0.5: Susceptible Staphylococcus aureus inducible clindamycin CARLOS METHOD Negative Staphylococcus aureus Levofloxacin CARLOS METHOD 0.25: Susceptible Staphylococcus aureus Oxacillin(methicillin) CARLOS METHO D 1: Susceptible Staphylococcus aureus Rifampin CARLOS METHOD <=0.5: Susceptible Staphylococcus aureus Tetracycline CARLOS METHOD <=1: Susceptible Staphylococcus aureus Trimethoprim/sulfamethoxazole [place] C METHOD <=10: Susceptible Staphylococcus aureus Vancomycin CARLOS METHOD 1: Susceptible Staphylococcus aureus Cefoxitin CARLOS METHOD Negative Comment: Josiane Hussein MD MICROBIOLOGY - GENERAL ORDER NACHO Final Result [address] [address] * Anaerobic Culture (05/16/2025 12:55 PM EDT) Special Requests None 05/16/2025 12:55 PM EDT [facility] Anaerobic Culture NO ANAEROBES ISOLATED 05/18/2025 10:11 AM EDT [facility] Other (Wound) 05/16/2025 12: 55 PM EDT 05/16/2025 1:59 PM EDT Comment:LEFT GREAT TOE WOUND Josiane Hussein MD MICROBIOLOGY - GENERAL ORDER NACHO Final Result Performing Organization Address [facility]/ZIP Co de Phone Number [address] [address] * ANES ETT DOUBLE LUMEN - AIRWAY LDA (05/16/2025 12:35 PM EDT) Narrative Ray Ty CRNA - 05/16/2025 12:35 PM EDT Ray Ty CRNA 05/16/2025 12:45 PM Airway Placement Procedure Note: Procedure performed by: fellow/resident/BILINGUAL TEACHER Anesthesiologist: Cristiane Viera MD Fellow/Resident/BILINGUAL TEACHER: Ray Ty CRNA Airway procedure initiated at:05/16/2025 12:35 PM and ended at. Personal Protective Equipment: Mask: surgical mask Eye Protection: eye shield Gloves: gloves Gown: no gown Mask Ventilation: Quality: not attempted Airway Placement: Technique: LMA Rapid sequence induction: no LMA Insertion: LMA size: 4 LMA placement attempts: 1. Outcomes: Evidence of dental injury? no Complications observed? no us Cristiane Viera MD ME ANESTHESIA Final Result * TSH with reflex (05/16/2025 6:35 AM EDT) TSH 0.98 0.27 - 4.20 uIU/mL [facility] Blood 05/16/2025 6:35 AM EDT 05/16/2025 6:58 AM EDT us Naren Lundberg DO, MPH LAB BLOOD ORDERABLES Final Result [address] [address] * Anatomic Pathology (05/16/2025 12:00 AM EDT) 05/16/2025 05/16/2025 2:5 7 PM EDT Narrative SEE NARRATIVE - 05/21/2025 12:08 PM EDT [address] [address] Tubular Splitting Machine Tender: Kranthi Giraldo MD Surgical Pathology Report FINAL PATHOLOGIC DIAGNOSIS: A. LEFT DISTAL GREAT TOE: Ulcerated skin and underlying abscess formation. Acute osteomyelitis. B. LEFT GREAT TOE PROXIMAL PHALYNX: Bone, negative for acute osteomyelitis. Electronically Signed Out By Mcihelle Marshall MD By his/her signature above, the pathologist listed as making the Final Diagnosis certifies that he/she has personally reviewed this case and confirmed or corrected the diagnosis. CLINICAL HISTORY Infected toe SPECIMENS SUBMITTED: A: LEFT DISTAL GREAT TOE B: LEFT GREAT TOE PROXIMAL PHALYNX GROSS DESCRIPTION A. LEFT DISTAL GREAT TOE: Received in formalin is a portion of great toe which measures 4.3 cm in length, 3.7 cm in width and 3.6 cm in thickness. The skin is thomas-white and demonstrates an area of dorsomedial ulceration. The ulcer measures 1 cm and is located 0.6 cm from the soft tissue margin. No additional ulcers identified. The toenail is yellow and thickened. Mechanical Sound Technician sections are submitted as follows: A1: Ulcer and soft tissue margin A2: Underlying bone after formalin fixation and decalcification. B. LEFT GREAT TOE PROXIMAL PHALYNX: Received in formalin is a phalangeal bone which measures 3.8 cm in greatest length, 2.2 cm in greatest width and 1.1 cm in greatest thickness. No focal gross abnormalities are identified grossly. Mechanical Sound Technician sections in block B1 after formalin fixation and decalcification. DN 05/16/2025 Grossing Staff: MATTHEW Patient Name: BUDDY SUGGS : 1935 (Age: 89) Sex: M Institution: [facility] Location: [place] [address] Date of Operation: 05/16/2025 Date of Reported: 05/21/2025 12:08 Results To: Josiane Frost MD us Josiane Hussein MD PATHOLOGY ORDERABLES Final R esult SEE NARRATIVE * (ABNORMAL) Vancomycin, trough (05/15/2025 6:56 PM EDT) VANCOMYCIN,TRO UGH 6.3(L) 10.0 - 20.0 ug/mL [facility] Comment: Interpretation: Therapeutic Range: 10.0 - 20.0 ug/ml. Toxic: Greater than 30.0 ug/ml. Blood 05/15/2025 6:56 PM EDT 05/15/2025 7:10 PM EDT us Uli Garcia MD LAB BLOOD ORDERABLES Final Resu lt [address] [address] * XR Chest Portable (05/15/2025 11:12 AM EDT) Anatomical Region Laterality Modality Chest Computed Radiogr aphy 05/15/2025 11:2 4 AM EDT Impressions 05/15/2025 11:27 AM EDT 1. Linear airspace opacity at the left lower lobe which may reflect atelectasis. 2. Poor visualization of leads from the left-sided cardiac device due to technique. Narrative 05/15/2025 11:27 AM EDT XR CHEST PORTABLE Referring clinician's provided indication for this examination in [facility]: Pre-Op COMPARISON: CT ABDOMEN/PELVIS WITHOUT CONTRAST FINDINGS: Devices/Tubes/Lines: Cardiac device at the left chest for visualization of cardiac leads Lungs: The lungs are well-inflated. There is linear airspace opacity at the left lower lobe. Pleura: No pleural effusion or pneumothorax. Heart/Mediastinum: There is borderline enlargement of the cardiac silhouette. The thoracic aorta is peripherally calcified and tortuous. Postsurgical changes demonstrated. Bones/Soft Tissues: Status post median sternotomy, fracture of the inferior most sternal wire again demonstrated. Degenerative changes of the left glenohumeral joint with remodeling. Procedure Note Radha Marshall MD - 05/15/2025 XR CHEST PORTABLE Referring clinician's provided indication for this examination in [facility]:Pre-Op COMPARISON: CT ABDOMEN/PELVIS WITHOUT CONTRAST FINDINGS: Devices/Tubes/Lines: Cardiac device at the left chest for visualization ofcardiac leads Lungs: The lungs are well-inflated. There is linear airspace opacity atthe left lower lobe. Pleura: No pleural effusion or pneumothorax. Heart/Mediastinum: There is borderline enlargement of the cardiacsilhouette. The thoracic aorta is peripherally calcified and tortuous.Postsurgical changes demonstrated. Bones/Soft Tissues: Status post median sternotomy, fracture of theinferior most sternal wire again demonstrated. Degenerative changes of theleft glenohumeral joint with remodeling. IMPRESSION: 1. Linear airspace opacity at the left lower lobe which may reflectatelectasis. 2. Poor visualization of leads from the left-sided cardiac device due totechnique. us Naren Lundberg DO, MPH IMG XR CHEST Final Resu lt * MRI TOE WITH AND WITHOUT CONTRAST (LEFT) (05/14/2025 11:50 PM EDT) MGB IMG [employer] COMMENT Findings suggestive of early osteomyelitis about the great toe interphalangeal joint. [facility] Anatomical Region Laterality Modality Foot Left Magnetic Resonan ce 05/15/2025 8:31 AM EDT Impressions 05/15/2025 8:52 AM EDT 1. Findings suggestive of early osteomyelitis about the great toe interphalangeal joint. 2. Distal extensor hallucis longus tenosynovitis. A clinically significant result was initiated on 05/15/2025 8:52 AM, Message ID [id number]. Narrative 05/15/2025 8:52 AM EDT MRI TOE WITH AND WITHOUT CONTRAST (LEFT) Referring clinician's provided indication for this examination in Epic: * Osteomyelitis, foot TECHNIQUE: Multi-sequence, multi-planar MRI of the foot with and without intravenous contrast. COMPARISON: Left toe radiographs 05/13/2025 FINDINGS: Bones/joints: There is no evidence of acute fracture, subluxation, or dislocation. There is T2 hyperintense signal within the great toe extending from the mid proximal phalanx diaphysis through the distal phalanx. There is mild associated T1 signal hypointensity of lesser extent, restricted to the region about the interphalangeal joint. There are trace metatarsophalangeal joint effusions. There is mild scattered degenerative change. There is a bipartite medial hallux sesamoid. Muscles/tendons: There is edema and fatty infiltration of the intrinsic foot muscles, likely representing denervation change. The flexor and extensor tendons are intact. There is distal extensor hallucis longus tenosynovitis. Soft tissues: There is marked dorsal soft tissue edema without evidence of a focal drainable fluid collection, may represent cellulitis in the appropriate clinical setting. Procedure Note Adelina Boothe MD - 05/15/2025 MRI TOE WITH AND WITHOUT CONTRAST (LEFT) Referring clinician's provided indication for this examination in Epic: *Osteomyelitis, foot TECHNIQUE: Multi-sequence, multi-planar MRI of the foot with and withoutintravenous contrast. COMPARISON: Left toe radiographs 05/13/2025 FINDINGS: Bones/joints: There is no evidence of acute fracture, subluxation, ordislocation. There is T2 hyperintense signal within the great toeextending from the mid proximal phalanx diaphysis through the distalphalanx. There is mild associated T1 signal hypointensity of lesserextent, restricted to the region about the interphalangeal joint. Thereare trace metatarsophalangeal joint effusions. There is mild scattereddegenerative change. There is a bipartite medial hallux sesamoid. Muscles/tendons: There is edema and fatty infiltration of the intrinsicfoot muscles, likely representing denervation change. The flexor andextensor tendons are intact. There is distal extensor hallucis longustenosynovitis. Soft tissues: There is marked dorsal soft tissue edema without evidence ofa focal drainable fluid collection, may represent cellulitis in theappropriate clinical setting. IMPRESSION: 1. Findings suggestive of early osteomyelitis about the great toeinterphalangeal joint. 2. Distal extensor hallucis longus tenosynovitis. A clinically significant result was initiated on 05/15/2025 8:52 AM,Message ID [id number]. Rashid Oquendo DO IM MR EXTREMITY Final Result * Uric acid, random urine (05/13/2025 10:12 PM EDT) URINE URIC ACID 23.1 mg/dL [facility] Urine (Urine) 05/13/2025 10: 12 PM EDT 05/13/2025 10:54 PM EDT us Uli Garcia MD URINE ORDERABLES Final Result [address] [address] * Sodium, random urine (05/13/2025 10:12 PM EDT) URINE SODIUM 45 mmol/L [facility] Urine (Urine) 05/13/2025 10: 12 PM EDT 05/13/2025 10:54 PM EDT us Uli Garcia MD URINE ORDERABLES Final Result Performing Organization Address [facility] Co de Phone Number [address] [address] * Osmolality, Random Urine (05/13/2025 10:12 PM EDT) URINE OSMOLALITY 351 mOsm/kg water [facility] Urine (Urine) 05/13/2025 10: 12 PM EDT 05/13/2025 10:54 PM EDT us Uli Garcia MD URINE ORDERABLES Final Result Performing Organization Address [facility]/ZIP Co de Phone Number [address] [address] * Creatinine, random urine (05/13/2025 10:12 PM EDT) URINE CREATININE 69 mg/dL [facility] Urine (Urine) 05/13/2025 10: 12 PM EDT 05/13/2025 10:54 PM EDT us Uli Garcia MD URINE ORDERABLES Final Result Performing Organization Address [facility]/ZIP Co de Phone Number [address] [address] * (ABNORMAL) Uric acid (05/13/2025 7:44 PM EDT) URIC ACID 7.4(H) 2.4 - 7.0 mg/dL [facility] Blood 05/13/2025 7:44 PM EDT 05/13/2025 7:46 PM EDT us Uli Garcia MD LAB BLOOD ORDERABLES Final Resu lt Performing Organization Address [facility]/ZIP Co de Phone Number [address] [address] * (ABNORMAL) Osmolality, serum (05/13/2025 7:44 PM EDT) OSMOLALITY 274(L) 289 - 308 mOsm/kg water [facility] Blood 05/13/2025 7:44 PM EDT 05/13/2025 7:46 PM EDT us Uli Garcia MD LAB BLOOD ORDERABLES Final Resu lt Performing Organization Address [facility] de Phone Number [address] [address] * XR Toes 2 or More Views (Left) (05/13/2025 7:43 PM EDT) Anatomical Region Laterality Modality Foot Left Computed Radiogr aphy 05/13/2025 8:14 PM EDT Impressions 05/13/2025 8:15 PM EDT Soft tissue swelling of the great toe and foot. Degenerative changes of multiple joints of the foot. No acute osseous abnormality. Narrative 05/13/2025 8:15 PM EDT XR TOES 2 OR MORE VIEWS (LEFT) Referring clinician's provided indication for this examination in Epic: Infection COMPARISON: None FINDINGS: The toes are held in flexion. Moderate degenerative changes of multiple joints of the toes and foot. Soft tissue swelling of the great toe. Moderate atherosclerotic calcifications. There is also moderate dorsal soft tissue swelling of the foot. Procedure Note Madina Malone MD, PhD - 05/13/2025 XR TOES 2 OR MORE VIEWS (LEFT) Referring clinician's provided indication for this examination in Epic:Infection COMPARISON: None FINDINGS: The toes are held in flexion. Moderate degenerative changes of multiplejoints of the toes and foot. Soft tissue swelling of the great toe.Moderate atherosclerotic calcifications. There is also moderate dorsalsoft tissue swelling of the foot. IMPRESSION: Soft tissue swelling of the great toe and foot. Degenerative changes ofmultiple joints of the foot. No acute osseous abnormality. us Uli Garcia MD IMG XR LOWER EXTREMITY Final Re sult * Hemoglobin A1c (04/10/2025 9:10 AM EDT) HEMOGLOBIN A1C 4.8 4.3 - 5.8 % [facility] Blood 04/10/2025 9:10 AM EDT 04/10/2025 10:01 AM EDT us May A Santosh Vaughan MD LAB BLOOD ORDERABLES F inal Result [facility] [address] [place] [address] from Last 3 Months or Most Recently Relevant to Health Maintenance Insurance [address] [place] [address] MEDICARE PART A & B FOR LIFE MEDICARE SUPPLEMENT MEDICARE PART A & B FOR LIFE MEDICARE SUPPLEMENT MEDICARE PART A & B FOR LIFE MEDICARE SUPPLEMENT MEDICARE PART A & B FOR LIFE MEDICARE SUPPLEMENT MEDICARE PART A & B FOR LIFE MEDICARE SUPPLEMENT MEDICARE PART A & B FOR LIFE MEDICARE SUPPLEMENT Advance Directives For more information, please contact: [phone] (9AM - 5PM [facility], Monday-Monday) Documents on File Type Date Recorded 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 Proxy 05/23/2025 11:51 AM MOLST 05/15/2025 9:06 AM * DNR/DNI (No CPR/No Intubation) (Latest Code Status on File) Date Activated Date Inactivated Comments 06/29/2025 6:09 PM Question Answer Comments Code Status Confirmed With: Patient * DNR/DNI (No CPR/No Intubation) Date Activated Date Inactivated Comments 05/14/2025 1:07 AM 06/29/2025 6:09 PM Question Answer Comments Code Status Confirmed With: Patient Code Status Communicated To: Inpatient Attending Healthcare Agents on File Name Relationship Healthcare Agent Relationshi p Communication Cam Dion Son .Primary Health Care Agent (Proxy form on file) Care Teams Audience Coordinator Relationship Specialty Start Date End Date Rosario Rivera MD [address] [place] [phone] [email or web address] PCP - General Internal Medicine 03/20/24 Frederic Mullen MD [address] [address] [email or web address] Primary Oncologist Hematology and Oncology 08/01/23 Additional Source Comments The information contained in this document represents components of the legal health record. It is not the complete legal health record.[facility]
--- OUTSIDE RECORDS SUMMARY | 2025-08-12 07:09 | XMS_ITS | Encounter Summary ---
Author Organization [facility] Address [address] [facility] [address] [place] [address] Phone Care Team Providers Care Regulatory Affairs Spec Name Role Phone Frederic Mullen MD Unavailable [phone] Rosario Rivera MD Primary Care Provider Encounter Details Date Type Department Care Team (Late st Contact Info) Description 06/30/2025 Procedure Pass [facility] [address] [place] [address] Social History Tobacco Use Types Packs/Day Years Used Date Smoking Tobacco: Unknown Alcohol Use Standard Drinks/Week Comments Not Currently [...] Score (Lifetime/Recent) Answer Date of Assessment Author High Risk 06/30/2025 9:41 AM EDT Nick Jiménez RN * [place] Suicide Severity Rating Scale (Screener/Recent Self-Report) Question Answer Date of Assessment Author 1. Wish to be (Past 1 Month) Yes 9:41 AM TYSONT Nick Jiménez, SON 2. Non-Specific Active Suici alison Thoughts (Past 1 Month) Yes 06/30/2025 9:41 AM EDT Blake Jiménez RN 3. Active Suicidal Ideation with any Methods (Not Plan) Without Intent to Act (Past 1 Month) Yes 06/30/2025 9:41 AM EDT Nick Ramírez, SON 4. Active Suicidal Ideation with Some Intent to Act, Without Specific Plan (Past 1 Month) Yes 06/30/2025 9:41 AM EDT Nick Ramírez RN 5. Active Suicidal Ideation with Specific Plan and Intent (Past 1 Month) Yes 06/30/2025 9:41 AM EDT Nick Jiménez RN 6. Suicidal Behavior (Lifetime) Yes 9:41 AM EDT Nick Jiménez RN 6. Suicidal Behavior (3 Months) Yes 9:41 AM EDT Nick Jiménez RN documented as of this encounter Plan of Treatment Upcoming Encounters Date Type Department Care Team (Late st Contact Info) Description 08/14/2025 2:15 PM EDT Office Visit [facility] General Surgical Care [address] [place] [address] Josiane Smith MD [address] [facility], 2nd [place] [address] [email or web address] documented as of this encounter Visit Diagnoses Not on filedocumented in this encounter Additional Health Concerns Infection Onset Date Last Indicated Resolved Time CoV-Risk Comment:Per note documentation 06/29/2025 06/29/2025 3:35 PM EDT documented as of this encounter Care Teams Regulatory Affairs Spec Relationship Specialty Start Date End Date Rosario Rivera MD [address] [place] [phone] [email or web address] PCP - General Internal Medicine 03/20/24 Frederic Mullen MD [address] [address] Primary Oncologist Hematology and Oncology 08/01/23 documented as of this encounter Additional Source Comments The information contained in this document represents components of the legal health record. It is not the complete legal health record.[facility]
--- OUTSIDE RECORDS SUMMARY | 2025-08-12 07:09 | XMS_ITS | Encounter Summary ---
Author Organization [facility] Address [address] [facility] [address] [place] [address] Phone Care Team Providers Care Career Law Clerk Name Role Phone Frederic Mullen MD Unavailable [phone] Rosario Rivera MD Primary Care Provider Encounter Details Date Type Department Care Team (Late st Contact Info) Description 05/27/2025 Procedure Pass [facility], Ct Scan - [facility] [address] [place] [address] Social History Tobacco Use Types Packs/Day Years [...] got money to buy more. Never True 05/27/2025 Within the past 6 months the food we bought just didn't last and we didn't have enough money to get more. Never True Residential Stability Answer Date Recor ded What is your housing situation today? I have angelica sing 05/27/2025 How many times have you move d in the past 12 months? Zero (I did not move) 05/27/2025 Paying for Meds Answer Date Recorded Do you have trouble paying for medicines? No 05/27/2025 Paying Utility Bills Answer Date Record ed Do you have trouble paying your heating or elect ricity bill? No 05/27/2025 Transportation Answer Date Recorded Has the lack of transportati on kept you from medical appointments or from getting medications? No 05/27/2025 Digital Access Answer Date Recorded No 05/27/2025 Yes 05/27/2025 Do you have reliable internet access at home? Ye s 05/27/2025 Do you have a device (e.g., phone, tablet, computer) with a working camera? Yes 05/27/2025 Intimate Partner Violence Answer Date R ecorded Are you denied basic needs s uch as food, clothing, or medical care? No 05/27/2025 In the past 12 months have y ou been in a relationship with a person who hurts, threatens, or tries to control you? No 05/27/2025 Are you denied basic needs s uch as food, clothing, or medical care? No 05/27/2025 In the past 12 months have y ou been in a relationship with a person who hurts, threatens, or tries to control you? No 05/27/2025 Sex and Gender Information Value Date Recorded Sex Assigned at Male 03/20/2024 12:26 PM EDT Legal Sex Male 5:58 PM EDT Gender Identity Male 03/20/2024 12:26 PM EDT Sexual Orientation Straight 03/20/2024 12 :26 PM EDT documented as of this encounter Functional Status * Calculated C-SSRS Risk Score (Lifetime/Recent) Answer Date of Assessment Author No Risk Indicated 05/27/2025 12:00 PM EDT Daniel Jo RN * [place] Suicide Severity Rating Scale (Screener/Recent Self-Report) Question Answer Date of Assessment Author 1. Wish to be (Past 1 Month) No 05/27/2025 12:00 PM EDT Marta Galvin RN 2. Non-Specific Active Suici alison Thoughts (Past 1 Month) No 05/27/2025 12:00 PM EDT Tonia Galvin RN 6. Suicidal Behavior (Lifetime) No 12:00 PM EDT Daniel Galvin RN documented as of this encounter Plan of Treatment Upcoming Encounters Date Type Department Care Team (Late st Contact Info) Description 08/14/2025 2:15 PM EDT Office Visit [facility] General Surgical Care [address] [place] [address] Josiane Smith MD 15 [facility], 2nd [place] [address] documented as of this encounter Visit Diagnoses Not on filedocumented in this encounter Additional Health Concerns Infection Onset Date Last Indicated Resolved Time CDiff-Risk 05/27/2025 05/27/2025 05/27/2025 7:49 PM EDT CoV-Risk Comment:Per note documentation 06/29/2025 06/29/2025 3:35 PM EDT documented as of this encounter Care Teams Career Law Clerk Relationship Specialty Start Date End Date Rosario Rivera MD [address] [place] [phone] [email or web address] PCP - General Internal Medicine 03/20/24 Frederic Mullen MD [address] [address] Primary Oncologist Hematology and Oncology 08/01/23 documented as of this encounter Additional Source Comments The information contained in this document represents components of the legal health record. It is not the complete legal health record.[facility]
--- OUTSIDE RECORDS SUMMARY | 2025-08-12 07:09 | XMS_ITS | Encounter Summary ---
Author Organization [facility] Address [address] [place] [address] [place] [phone] Phone Care Team Providers Care Dispersion Mixer Name Role Phone Frederic Mullen MD Unavailable Rosario Rivera MD Primary Care Provider Encounter Details Date Type Department Care Team (Late st Contact Info) Description 03/20/2024 Procedure Pass [facility], Ct Scan - [address] [address] Social History Tobacco Use Types Packs/Day Years [...] as food, clothing, or medical care? No 03/20/2024 In the past 12 months have y ou been in a relationship with a person who hurts, threatens, or tries to control you? No 03/20/2024 Are you denied basic needs s uch as food, clothing, or medical care? No 03/20/2024 In the past 12 months have y ou been in a relationship with a person who hurts, threatens, or tries to control you? No 03/20/2024 Sex and Gender Information Value Date Recorded Sex Assigned at Male 03/20/2024 12:26 PM EDT Legal Sex Male 5:58 PM EDT Gender Identity Male 03/20/2024 12:26 PM EDT Sexual Orientation Straight 03/20/2024 12 :26 PM EDT documented as of this encounter Functional Status * Calculated C-SSRS Risk Score (Lifetime/Recent) Answer Date of Assessment Author No Risk Indicated 03/20/2024 12:26 PM EDT Madeleine Alanis RN * [place] Suicide Severity Rating Scale (Screener/Recent Self-Report) Question Answer Date of Assessment Author 1. Wish to be (Past 1 Month) No 024 12:26 PM EDT Madeleine Clemons, RN 2. Non-Specific Active Suici alison Thoughts (Past 1 Month) No 03/20/2024 12:26 PM EDT Argenis Clemons RN 3. Active Suicidal Ideation with any Methods (Not Plan) Without Intent to Act (Past 1 Month) No 03/20/2024 12:26 PM EDT Madeleine Pleitez RN 4. Active Suicidal Ideation with Some Intent to Act, Without Specific Plan (Past 1 Month) No 03/20/2024 12:26 PM EDT Madeleine Pleitez, RN 5. Active Suicidal Ideation with Specific Plan and Intent (Past 1 Month) No 03/20/2024 12:26 PM EDT Madeleine Clemons, RN 6. Suicidal Behavior (Lifetime) No 12:26 PM EDT Madeleine Clemons RN documented as of this encounter Plan of Treatment Upcoming Encounters Date Type Department Care Team (Late st Contact Info) Description 08/14/2025 2:15 PM EDT Office Visit [facility] General Surgical Care [address] [place] [address] [place] [address] Josiane Smith MD 15 [facility], 2nd [place] [address] [email or web address] documented as of this encounter Visit Diagnoses Not on filedocumented in this encounter Additional Health Concerns Infection Onset Date Last Indicated Resolved Time CDiff-Risk 05/25/2025 05/25/2025 05/25/2025 10:3 8 AM EDT CDiff-Risk 05/27/2025 05/27/2025 05/27/2025 7:49 PM EDT CoV-Risk Comment:Per note documentation 06/29/2025 06/29/2025 3:35 PM EDT documented as of this encounter Care Teams Dispersion Mixer Relationship Specialty Start Date End Date Rosario Rivera MD [address] [place] [phone] [email or web address] PCP - General Internal Medicine 03/20/24 Frederic Mullen MD [address] [address] [email or web address] Primary Oncologist Hematology and Oncology 08/01/23 documented as of this encounter Additional Source Comments The information contained in this document represents components of the legal health record. It is not the complete legal health record.[facility]
== END 2025-08-12 07:06 | disposition home or self-care (01) ==
LOC: HO.MMNH1L 07:05
PROVIDERS: Visit Provider Physician Assistant Medical
DX: Z13.89 Encounter for screening for other disorder (principal)